=== PATIENT | female | born 1995 | race Caucasian/White ===

== ENCOUNTER 2021-02-17 07:36 | Inpatient (IN) ==
[2021-02-17] MEDS ORDERED: BUTORPHANOL TARTRATE 1 MG/ML VIAL IV PRN (08:39)
[2021-02-17] MEDS ORDERED: DINOPROSTONE 10 MG INSERT PV ONE (08:39)
[2021-02-17] MEDS ORDERED: CALCIUM CARBONATE 500 MG CHEWABLE TAB PO PRN (08:41)
[2021-02-17] MEDS ORDERED: ONDANSETRON INJ 2 MG/ML 2 ML VIAL IV PRN (08:42)
--- NOTE | 2021-02-17 08:48 | History & Physical Report ---
Date of Service February 17, 2021 Assessment & Plan (1) Post-term , 40-42 weeks of gestation: 25-year-old G1, P0 at 40 weeks and 4 days of gestation, being admitted for scheduled induction of labor for postdates. Vital signs stable afebrile, heart rate reassuring, GBS negative, Cervix unfavorable, Plan to admit, start IV site, labs and cervical ripening with Cervidil. Understands the findings and what to expect during induction. All questions were answered. Admission and Anticipated Discharge Date Admission Date: February 17, 2021 History of Present Illness Primary Care Provider: NO PCP Patient is a 25-year-old G1, P0 at 40 weeks and 4 days of gestation who was scheduled for induction of labor for postdates. Patient has no complaints. She denies contractions, leakage of fluid, vaginal bleeding and she reports good movements. She denies headache, change in her vision, nausea, vomiting, fever or chills nor Covid symptoms. Her has been uncomplicated except 1 hypothyroidism during , on levothyroxine 2 anemia, on iron 3 transferring care at 18 weeks, normal labs. 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 Review of Systems All systems reviewed & are unremarkable except as noted in HPI & below Physical Exam Constitutional: WD/WN, vitals as above well developed and well nourished Gastrointestinal (Abdomen): normal bowel sounds, soft, nontender, no hepatosplenomegaly (Gravid, Evgeny 7 to 8 pounds) Genitourinary: normal external appearance OB Exam Abdomen: + vertex Manual OB Exam: + cervical dilation 1 cm, + cervical effacement 30% and + station (Ballotable head) high OB Exam Monitor Tracing: + external uterine monitor used and + category I Results & Data ([facility]) Vital Signs (Past 12 Hours) Vital Signs Temp Pulse Resp BP 02/17/21 07:55 36.5 C 56 L 20 119/69
[2021-02-17 09:02] LABS: Hemoglobin 11.7 g/dL (12.0-16.0); Mean Corpuscular Hgb Conc 34.4 g/dL (32-36); Mean Corpuscular Volume 98.8 fL (80-100); Mean Platelet Volume 13.5 fL (7.4-10.4); Platelet Count 178 K/uL (130-400); RDW Standard Deviation 46.9 fL (36.4-46.3); Red Blood Count 3.44 M/uL (4.2-5.4); White Blood Count 9.14 K/uL (4.8-10.8)
--- NOTE | 2021-02-17 15:49 | Obstetrical Progress Note ---
Date of Service February 17, 2021 Assessment & Plan Admission and Anticipated Discharge Date Admission Date: February 17, 2021 Subjective Patient is reevaluated. She feels well no complaints. she feels tightening of uterus with no pain. She has been drinking with no nausea nor vomiting. She denies leakage of fluid or vaginal bleeding and she reports good movements. heart rate category 1, toco contractions every 3 to 5 minutes. Continue to monitor closely. Results & Data ([facility]) Vital Signs (Past 12 Hours) Vital Signs Temp Pulse Resp BP 02/17/21 14:18 37.0 C 56 L 20 122/57 L 02/17/21 13:03 36.6 C 67 18 115/81 02/17/21 12:03 53 L 126/66 02/17/21 09:14 55 L 118/73 02/17/21 07:55 36.5 C 56 L 20 119/69
--- NOTE | 2021-02-17 23:02 | Obstetrical Progress Note ---
Date of Service February 17, 2021 Assessment & Plan Admission and Anticipated Discharge Date Admission Date: February 17, 2021 Subjective Patient is reevaluated. She is sitting on the birthing ball. She has been feeling more painful contractions for the last hour. Pain is 4-5 out of 10 and milder with some other contractions. No leakage of fluid or vaginal bleeding and she reports good movements. Cervidil was removed at 9:15 PM and her cervix was unchanged, 1 to 2 cm, 50% -3 and posterior. heart rate had been reassuring, category 1 and contractions are every 2 to 5 minutes. Discussed with the patient about pain management during labor, IV pain medications versus epidural versus ambulation or birthing ball. She wants to hold for now, ambulate and will probably get IV Stadol. Continue to monitor and start oral Cytotec when contractions will space out. Results & Data ([facility]) Vital Signs (Past 12 Hours) Vital Signs Temp Pulse Resp BP 02/17/21 19:48 47 L 123/73 02/17/21 19:40 36.7 C 18 02/17/21 16:43 69 130/89 02/17/21 15:46 18 02/17/21 15:19 16 02/17/21 14:18 37.0 C 56 L 20 122/57 L 02/17/21 13:03 36.6 C 67 18 115/81 02/17/21 12:03 53 L 126/66
[2021-02-17] MEDS: miSOPROStoL 50 MCG TAB PO SCH (23:23)
[2021-02-18] MEDS: miSOPROStoL 50 MCG TAB PO SCH (03:35)
[2021-02-18] MEDS: LACTATED RINGER'S 1,000 ML IV PRN ×3 (05:58→12:48)
[2021-02-18] MEDS ORDERED: SODIUM CHLORIDE 0.9% INJ 10 ML VIAL ONE (06:15)
[2021-02-18] MEDS ORDERED: ePHEDrine sulfate 50 MG/ML AMP ONE (06:15)
[2021-02-18] MEDS ORDERED: BUPIVACAINE 0.25% 30 ML VIAL ONE (06:15)
[2021-02-18] MEDS ORDERED: fentaNYL citrate 100 MCG/2 ML VIAL ONE (06:15)
[2021-02-18] MEDS ORDERED: fentaNYL 2MCG/ML ROPIVACAINE 1.25MG/ML 100 ML BAG EPI ONE (06:16)
--- NOTE | 2021-02-18 06:20 | Obstetrical Progress Note ---
Date of Service February 18, 2021 Assessment & Plan Admission and Anticipated Discharge Date Admission Date: February 17, 2021 Subjective Patient is reevaluated. Received 2 doses of p.o. Cytotec and one time IV Stadol for pain at 2:30 AM. [facility]'ed at 0508, clear. Started to get more painful and desires epidural for pain. Her cervix was just checked by her nurse and it was 3 cm dilated, 70% effaced, - 2 with light meconium. heart rate category 1 Continue to monitor closely and epidural for pain. Results & Data ([facility]) Vital Signs (Past 12 Hours) Vital Signs Temp Pulse Resp BP Pulse Ox 02/18/21 06:13 70 99 02/18/21 05:54 51 L 100 02/18/21 05:49 48 L 100 02/18/21 05:44 48 L 98 02/18/21 05:39 44 L 99 02/18/21 05:34 46 L 99 02/18/21 05:29 54 L 100 02/18/21 05:24 50 L 99 02/18/21 05:19 53 L 99 02/18/21 05:14 36.5 C 55 L 18 98 02/18/21 05:06 48 L 97 02/18/21 05:01 46 L 99 02/18/21 04:56 49 L 98 02/18/21 04:51 47 L 98 02/18/21 04:46 45 L 97 02/18/21 04:41 45 L 97 02/18/21 04:36 59 L 97 02/18/21 04:26 57 L 97 02/18/21 04:21 54 L 97 02/18/21 04:16 50 L 97 02/18/21 04:11 53 L 97 02/18/21 04:06 50 L 97 02/18/21 04:01 48 L 97 02/18/21 03:56 47 L 97 02/18/21 03:51 47 L 97 02/18/21 03:46 49 L 97 02/18/21 03:41 51 L 96 02/18/21 03:36 52 L 97 02/18/21 03:31 51 L 97 02/18/21 03:26 46 L 97 02/18/21 03:21 49 L 97 02/18/21 03:16 46 L 97 02/18/21 03:11 48 L 97 02/18/21 03:06 61 97 02/18/21 03:03 47 L 101/56 L 02/18/21 03:02 36.5 C 16 02/18/21 03:01 68 98 02/18/21 02:56 47 L 97 02/18/21 02:51 48 L 97 02/18/21 02:46 48 L 97 02/18/21 02:41 47 L 96 02/17/21 23:03 36.7 C 48 L 16 107/56 L 02/17/21 19:48 47 L 123/73 02/17/21 19:40 36.7 C 18
[2021-02-18] MEDS ORDERED: NALOXONE HCL 1 MG in SODIUM CHLORIDE 0.9% 1000ML 1,000 ML IV PRN (06:35)
[2021-02-18] MEDS ORDERED: NALOXONE HCL 0.4 MG/1 ML VIAL/CARP IV PRN (06:35)
[2021-02-18] MEDS ORDERED: fentaNYL 2MCG/ML ROPIVACAINE 1.25MG/ML 100 ML BAG EPI PRN (06:35)
[2021-02-18] MEDS ORDERED: ePHEDrine sulfate 50 MG/ML AMP IV PRN (06:35)
[2021-02-18] MEDS ORDERED: ONDANSETRON INJ 2 MG/ML 2 ML VIAL IV PRN (06:35)
[2021-02-18] MEDS ORDERED: diphenhydrAMINE 50 MG/ML VIAL IV PRN (06:35)
--- NOTE | 2021-02-18 06:35 | Anesthesiology Consultation ---
Date of Service February 18, 2021 Assessment & Plan ASA ASA2 Proposed Anesthesia Anesthesia Type: Labor Epidural Risk / Benefits Reviewed With: PT / POA / Parent / Guardian, Accepts Plan and Informed Consent Obtained History Height/Weight Height: 5 ft 6 in Weight: 73.1 kg Allergies Allergy/AdvReac Type Severity Reaction Status Date / Time No Known Allergies Allergy Unverified 02/17/21 08:53 Medications Home Medications Medication Instructions Recorded Confirmed Last Taken ferrous sulfate 27 mg PO DAILY 12/18/20 02/17/21 02/16/21 20:00 levothyroxine 75 mcg PO DAILY 12/18/20 02/17/21 02/17/21 07:00 75 mcg vit no.[id number] 1 tab PO DAILY 12/18/20 02/17/21 02/17/21 07:00 [ Vitamin] progesterone micronized 200 mg PO HS 12/18/20 02/17/21 12/17/20 21:00 Active Medications Generic Name Dose Route Start Last Admin Trade Name Freq PRN Reason Stop Dose Admin Butorphanol Tartrate 1 mg 02/17/21 08:39 02/18/21 02:34 Butorphanol Tartrate 1 Mg/Ml Vial IV 03/19/21 08:38 1 mg Q3HWA PRN Administration Pain Lactated Ringer's 1,000 mls @ 150 mls/hr 02/17/21 08:39 02/18/21 05:58 Lr IV 02/19/21 08:38 999 mls/hr .Q6H40M PRN Administration L&D Protocol Protocol Misoprostol 50 mcg 02/18/21 00:00 02/18/21 03:35 Misoprostol 50 Mcg Tab PO 03/20/21 00:00 50 mcg Q4 EVAN Administration Exercise / Class Metabolic Activity II 4-5 Yardwork/Stairs/Walk up hill Past Surgical History Surgical History (Updated 02/17/21 @ 08:56 by María Monsalve RN) [place] teeth extracted Past Anesthesia History No Hx of Anesthesia Complications and No Family Hx of Anesthesia Complications History of PONV No Hx of PONV and No Hx of Motion Sickness Social History Smoking Status: Never smoker Do You Dip or Chew Tobacco: No Hx Alcohol Use: No Hx Substance Use: No substance use type: does not use Review of Systems denies fever/cough/ colds/ chest pain/ SOB/ DIEGO denies DIEGO Physical Exam Vital Signs Last Vital Signs Temp 36.5 C 02/18/21 05:14 Pulse 64 02/18/21 06:54 Resp 16 02/18/21 06:50 BP 126/62 02/18/21 06:54 Pulse Ox 100 02/18/21 06:53 ENMT Mouth: no TMJ abnormality and no dentition abnormality Thyromental Distance: > or= 3.5 Finger Breadths Mallampati Class: II Neck neck extension not limited Respiratory normal respiratory effort; no respiratory distress Auscultation: lungs clear to auscultation bilaterally Cardiovascular Rate/Rhythm: regular rate and regular rhythm Neurologic moves all extremities Psychiatric Orientation: alert and oriented x 3 Testing Laboratory Results 02/17/21 08:43
[2021-02-18] MEDS ORDERED: NURSING L&D Epidural Breakthrough Pain Update ONE (12:47)
[2021-02-18] MEDS: OXYTOCIN 30 UNITS/500 ML BAG IV PRN ×2 (14:09→15:16)
--- NOTE | 2021-02-18 14:31 | Delivery Summary ---
Vaginal Delivery Summary Date of Service February 18, 2021 Supervising Physician Co-Signing Physician Notes Delivery Note live female JOSÉ MANUEL over intact perineum with delayed cord clamping. Apgars 8/9 weight pending. Cord blood obtained followed by spontaneous delivery of intact placenta. Small vaginal abrasion at introitus repaired with 3/0 Suture. EBL 150 ml. Final sponge, needle and instrument count are correct. Mom and baby stable.
[2021-02-18] MEDS ORDERED: HYDROCORTISONE ACETATE 25 MG SUPP PR PRN (14:44)
[2021-02-18] MEDS ORDERED: BENZOCAINE 20% AER SPR 82.5 GM CAN EXT PRN (14:44)
[2021-02-18] MEDS ORDERED: DIPHTHERIA/TETANUS/PERTUSSIS 0.5 ML SYR/VIAL IM ONE (14:44)
[2021-02-18] MEDS ORDERED: SUPERCREAM 0.870% 15 GM JAR EXT PRN (14:44)
[2021-02-18] MEDS ORDERED: bisacodyL 10 MG SUPP PR PRN (14:44)
[2021-02-18] MEDS ORDERED: ACETAMINOPHEN 325 MG TAB PO PRN (14:44)
[2021-02-18] MEDS ORDERED: OXYTOCIN 30 UNITS/500 ML BAG IV PRN (14:44)
--- NOTE | 2021-02-18 16:52 | Anesthesia Procedure Note ---
Date of Service February 18, 2021 Anesthesia Post Epidural Note Vital Signs Vital Signs: Temp Pulse Resp BP Pulse Ox 36.6 C 53 L 20 120/67 99 02/18/21 13:17 02/18/21 16:37 02/18/21 16:18 02/18/21 16:37 02/18/21 14:03 Pain Intensity Abdomen: Pain Intensity: 0 Notes Mental Status: alert / awake / arousable and participated in evaluation Nausea / Vomiting: adequately controlled Pain: adequately controlled Airway Patency, RR, SpO2: stable & adequate BP & HR: stable & adequate Hydration State: stable & adequate Neuraxial Anesthesia: was administered and sensory block is resolving Anesthetic Complications: no major complications apparent and Pt Satisfied with anesthetic care Epidural: Removed without complications and With tip intact
[2021-02-18] MEDS ORDERED: Nursing to Pharmacy Communication SCH (17:30)
[2021-02-18] MEDS: IBUPROFEN 600 MG TAB PO PRN ×2 (19:47→23:49)
[2021-02-18] MEDS: DOCUSATE SODIUM 100 MG CAP PO SCH (20:43)
[2021-02-18] MEDS ORDERED: PROGESTERONE MICRONIZED 200 MG PO SCH (21:00)
[2021-02-19] MEDS: IBUPROFEN 600 MG TAB PO PRN ×5 (04:48→20:51)
[2021-02-19] MEDS: LEVOTHYROXINE SODIUM 75 MCG TABLET PO SCH (06:30)
[2021-02-19 06:37] LABS: Hemoglobin 8.7 g/dL (12.0-16.0); Mean Corpuscular Hemoglobin 32.8 pg (25-34); Mean Corpuscular Hgb Conc 33.5 g/dL (32-36); Mean Corpuscular Volume 98.1 fL (80-100); Mean Platelet Volume 12.8 fL (7.4-10.4); Platelet Count 138 K/uL (130-400); RDW Coefficient of Variation 13.3 % (11.5-14.5); RDW Standard Deviation 47.6 fL (36.4-46.3); Red Blood Count 2.65 M/uL (4.2-5.4); White Blood Count 10.87 K/uL (4.8-10.8)
[2021-02-19] MEDS ORDERED: FERROUS SULFATE 325 MG TAB PO SCH ×3 (07:15→09:00)
--- NOTE | 2021-02-19 08:03 | Obstetrical Progress Note ---
Date of Service February 19, 2021 Assessment & Plan Admission and Anticipated Discharge Date Admission Date: February 17, 2021 Subjective Patient is seen and examined. She feels well, no complaints. Ambulating without dizziness Voiding without difficulty Tolerating regular diet with out N&V Bleeding is minimal No fever/ chills/ CP/ SOB/ N&V/ Leg pain Breast feeding without problems Vital Signs Temp Pulse Resp BP Pulse Ox 02/19/21 04:45 36.7 C 61 16 131/80 99 02/18/21 23:50 36.5 C 60 17 121/74 98 Lab Results 02/17/21 02/17/21 02/17/21 Range/Units 08:43 08:44 08:44 WBC 9.14 (4.8-10.8) K/uL RBC 3.44 L (4.2-5.4) M/uL Hgb 11.7 L (12.0-16.0) g/dL Hct 34.0 L (37-47) % MCV 98.8 (80-100) fL MCH 34.0 (25-34) pg MCHC 34.4 (32-36) g/dL RDW Std Deviation 46.9 H (36.4-46.3) fL RDW Coeff of Melita 13.0 (11.5-14.5) % Plt Count 178 (130-400) K/uL MPV 13.5 H (7.4-10.4) fL COVID-19 Eval Order Covid19 IDNow atMMNC SARS-CoV-2, RNA, NAAT NEGATIVE (NEGATIVE) 02/19/21 Range/Units 06:13 WBC 10.87 H (4.8-10.8) K/uL RBC 2.65 L (4.2-5.4) M/uL Hgb 8.7 L D (12.0-16.0) g/dL Hct 26.0 L (37-47) % MCV 98.1 (80-100) fL MCH 32.8 (25-34) pg MCHC 33.5 (32-36) g/dL RDW Std Deviation 47.6 H (36.4-46.3) fL RDW Coeff of Melita 13.3 (11.5-14.5) % Plt Count 138 (130-400) K/uL MPV 12.8 H (7.4-10.4) fL COVID-19 Eval Order SARS-CoV-2, RNA, NAAT (NEGATIVE) PE: General: Alert, orientedx3, NAD Abd: soft, NT, fundus firm, below Umbilicus Perineum intact, Lochia rubra minimal Ext; NT, no edema AP: 25 yo s/p , ppd# 1 VSS Afebrile doing well Anemic asymptomatic: iron bid Continue routine care All questions were answered D/C home tomorrow Results & Data ([facility]) Vital Signs (Past 12 Hours) Vital Signs Temp Pulse Resp BP Pulse Ox 02/19/21 04:45 36.7 C 61 16 131/80 99 02/18/21 23:50 36.5 C 60 17 121/74 98
[2021-02-19] MEDS: DOCUSATE SODIUM 100 MG CAP PO SCH ×2 (08:07→20:51)
[2021-02-19] MEDS: FERROUS SULFATE 325 MG TAB PO SCH ×2 (08:07→20:51)
[2021-02-19] MEDS: PRENATAL VITAMIN 1 TAB PO SCH (08:07)
[2021-02-19] MEDS ORDERED: PRENATAL VITAMIN 1 TAB PO SCH (09:00)
[2021-02-19] MEDS ORDERED: bisacodyL 5 MG TABEC PO SCH (20:00)
[2021-02-20] MEDS: IBUPROFEN 600 MG TAB PO PRN (05:07)
[2021-02-20 06:05] LABS: Hematocrit (blood only) 26.4 % (37-47); Hemoglobin 8.8 g/dL (12.0-16.0)
[2021-02-20] MEDS: LEVOTHYROXINE SODIUM 75 MCG TABLET PO SCH (06:18)
[2021-02-20] MEDS: PRENATAL VITAMIN 1 TAB PO SCH (07:41)
[2021-02-20] MEDS: FERROUS SULFATE 325 MG TAB PO SCH (07:41)
--- NOTE | 2021-02-20 09:10 | Obstetrical Progress Note ---
Date of Service February 20, 2021 Subjective Ambulation: ambulating normally Diet Tolerance:: regular diet Feeding Type:: breast feeding passing gas, +BM yesterday no bleeding or pain Physical Exam Constitutional WD/WN, vitals as above well developed and comfortable no edema neg Dimple's abdomen soft Results & Data ([facility]) Vital Signs (Past 12 Hours) Vital Signs Temp Pulse Resp BP Pulse Ox 02/20/21 07:45 36.4 C L 74 18 129/91 99 02/19/21 22:45 36.4 C L 62 16 118/72 98 Laboratory Results Laboratory Results - last 72 hr 02/19/21 02/20/21 06:13 05:55 WBC 10.87 H RBC 2.65 L Hgb 8.7 L D 8.8 L Hct 26.0 L 26.4 L MCV 98.1 MCH 32.8 MCHC 33.5 RDW Std Deviation 47.6 H RDW Coeff of Melita 13.3 Plt Count 138 MPV 12.8 H
== END 2021-02-20 10:00 | disposition home or self-care (01) | DRG 807 ==
LOC: 4S1 07:36 → 4S2 02-18 18:20

== ENCOUNTER 2023-05-17 17:31 | Inpatient (IN) ==
[2023-05-17] MEDS ORDERED: OXYTOCIN 30 UNITS/500 ML BAG IV PRN ×2 (17:50→18:47)
[2023-05-17] MEDS ORDERED: LIDOCAINE 1% LOCAL 20 ML VIAL INFIL PRN (17:50)
[2023-05-17] MEDS ORDERED: LACTATED RINGER'S 1,000 ML IV PRN (17:50)
[2023-05-17] MEDS ORDERED: LIDOCAINE 2%/EPINEPHRINE 1:200,000 20 ML PF ONE (18:05)
[2023-05-17] MEDS ORDERED: BUPIVACAINE 0.25% PF 30 ML VIAL ONE (18:05)
[2023-05-17] MEDS ORDERED: SODIUM CHLORIDE 0.9% PF INJ 10 ML VIAL ONE (18:05)
[2023-05-17] MEDS ORDERED: ePHEDrine sulfate 50 MG/ML AMP ONE (18:05)
[2023-05-17] MEDS ORDERED: fentaNYL citrate PF 100 MCG/2 ML VIAL ONE (18:05)
[2023-05-17] MEDS ORDERED: fentaNYL 2MCG/ML ROPIVACAINE 1.25MG/ML 100 ML BAG EPI ONE (18:06)
[2023-05-17] MEDS ORDERED: PENICILLIN G POTASSIUM 6 MU in DEXTROSE 5% 250 ML IV ONE (18:15)
[2023-05-17 18:36] LABS: Hematocrit (blood only) 35.9 % (37.0-47.0); Hemoglobin 12.7 g/dl (12.0-16.0); Mean Corpuscular Hemoglobin 33.6 pg (25.0-34.0); Mean Corpuscular Hgb Conc 35.4 g/dL (32.0-36.0); Mean Platelet Volume 13.1 fL (9.4-12.4); Platelet Count 261 K/uL (130-400); RDW Coefficient of Variation 12.2 % (11.5-14.5); RDW Standard Deviation 42.3 fL (36.4-46.3); Red Blood Count 3.78 M/uL (4.20-5.40); White Blood Count 16.35 K/ul (4.8-10.8)
--- NOTE | 2023-05-17 18:44 | Delivery Summary ---
Vaginal Delivery Summary Date of Service May 17, 2023 Vaginal Delivery Summary live male JOSÉ MANUEL over intact perineum with nuchal cord and foot cord x1 with delayed cord clamping and Apgars 8/9 weight pending. Cord blood obtained followed by spontaneous delivery of intact placenta. No tears. EBL 100 ml. Final sponge and instrument count are correct. Mom and baby stable.
[2023-05-17] MEDS ORDERED: ACETAMINOPHEN 325 MG TAB PO PRN (18:47)
[2023-05-17] MEDS ORDERED: bisacodyL 10 MG SUPP PR PRN (18:47)
[2023-05-17] MEDS ORDERED: HYDROCORTISONE ACETATE 25 MG SUPP PR PRN (18:47)
[2023-05-17] MEDS ORDERED: DIPHTHERIA/TETANUS/PERTUSSIS Vaccine (Tdap, Age 7+yrs) 0.5mL SYR/VL IM ONE (18:47)
[2023-05-17] MEDS ORDERED: BENZOCAINE 20% SPRY 85 APPLN/85 GM CAN EXT PRN (18:47)
[2023-05-17] MEDS ORDERED: PENICILLIN G POTASSIUM 3 MU in DEXTROSE 5% 100 ML IV PRN (20:50)
[2023-05-17] MEDS: DOCUSATE SODIUM 100 MG CAP PO SCH (21:17)
[2023-05-18] MEDS: LEVOTHYROXINE SODIUM 100 MCG TABLET PO SCH (05:54)
[2023-05-18 07:18] LABS: Hematocrit (blood only) 34.9 % (37.0-47.0); Hemoglobin 11.9 g/dl (12.0-16.0); Mean Corpuscular Hemoglobin 33.2 pg (25.0-34.0); Mean Corpuscular Hgb Conc 34.1 g/dL (32.0-36.0); Mean Corpuscular Volume 97.5 fL (80.0-100.0); Red Blood Count 3.58 M/uL (4.20-5.40); White Blood Count 11.11 K/ul (4.8-10.8)
[2023-05-18 07:19] LABS: Mean Platelet Volume 12.5 fL (9.4-12.4); Platelet Count 182 K/uL (130-400); RDW Coefficient of Variation 12.4 % (11.5-14.5); RDW Standard Deviation 44.3 fL (36.4-46.3)
[2023-05-18] MEDS: FERROUS SULFATE 325 MG TAB PO SCH (08:33)
[2023-05-18] MEDS: DOCUSATE SODIUM 100 MG CAP PO SCH ×2 (08:33→20:25)
[2023-05-18] MEDS: PRENATAL VITAMIN 1 TAB PO SCH (08:33)
[2023-05-18] MEDS: FLUoxetine HCL 10 MG CAP PO SCH (08:34)
[2023-05-18] MEDS: IBUPROFEN 600 MG TAB PO PRN ×3 (09:35→17:24)
--- NOTE | 2023-05-18 09:35 | Obstetrical Progress Note ---
Date of Service May 18, 2023 Subjective Ambulation: ambulating normally Voiding: no voiding problems Passing Gas:: Yes Diet Tolerance:: regular diet Lochia:: Small Feeding Type:: breast feeding Current Pain Level(1-10): 0 doing well Physical Exam Constitutional WD/WN, vitals as above Musculoskeletal Extremities: extremities normal to inspection Skin no rashes, warm and dry Neurologic patellar DTR's 2+ bilat, sensation intact Psychiatric A+Ox3, euthymic affect Results & Data Vital Signs (Past 12 Hours) Vital Signs Temp Pulse Resp BP Pulse Ox O2 Del Method 05/18/23 04:20 36.6 C 52 L 18 108/59 L 97 Room Air 05/18/23 00:21 36.6 C 49 L 18 107/66 96 Room Air Laboratory Results 05/17/23 05/18/23 18:18 06:43 WBC 16.35 H 11.11 H RBC 3.78 L 3.58 L Hgb 12.7 11.9 L Hct 35.9 L 34.9 L MCV 95.0 97.5 MCH 33.6 33.2 MCHC 35.4 34.1 RDW Std Deviation 42.3 44.3 RDW Coeff of Melita 12.2 12.4 Plt Count 261 182 MPV 13.1 H 12.5 H
[2023-05-18] MEDS ORDERED: bisacodyL 5 MG TABEC PO SCH (20:00)
[2023-05-19 06:34] LABS: Hematocrit (blood only) 32.3 % (37.0-47.0)
[2023-05-19] MEDS: FLUoxetine HCL 10 MG CAP PO SCH (08:03)
[2023-05-19] MEDS: FERROUS SULFATE 325 MG TAB PO SCH (08:03)
[2023-05-19] MEDS: LEVOTHYROXINE SODIUM 100 MCG TABLET PO SCH (08:03)
[2023-05-19] MEDS: DOCUSATE SODIUM 100 MG CAP PO SCH (08:03)
[2023-05-19] MEDS: IBUPROFEN 600 MG TAB PO PRN (08:03)
[2023-05-19] MEDS: PRENATAL VITAMIN 1 TAB PO SCH (08:03)
--- NOTE | 2023-05-19 09:04 | Labor Progress Brief Note ---
Date of Service May 19, 2023 Assessment & Plan (1) Post-term , 40-42 weeks of gestation: Plan: Pt doing well no complaints anticipate disch Admission and Anticipated Discharge Date Admission Date: May 17, 2023 Results & Data Vital Signs (Past 12 Hours) Vital Signs Temp Pulse Resp BP Pulse Ox O2 Del Method 05/19/23 00:00 36.5 C 51 L 16 120/73 98 Room Air
--- NOTE | 2023-05-21 11:25 | Coding Query ---
CODING QUERY To promote full compliance with coding requirements relating to patient care, provider participation is requested in all cases of medical records coder uncertainty. Please assist us with the question(s) below: Coding Question(s): Please confirm below the patient's weeks of gestation at the time of admission. 39 weeks Physician's Response(s): Thank you Yari Ojeda Brian Principal Diagnosis: "that condition established after study, to be chiefly responsible for occasioning the admission of the patient to the hospital for care." Co-Existing Principal Diagnosis: "when two or more diagnoses equally meet the criteria for principal diagnosis as determined by the circumstances of admission, diagnostic work up, and/or therapy provided, and the Alphabetic Index, Tabular List, or another coding guideline does not provide sequencing direction, any one of the diagnoses may be sequenced first." "When the physician has documented what appears to be a current diagnosis in the body of the record, but has not included the diagnosis in the final diagnostic statement, the physician should be asked whether the diagnosis should be added." (Source [facility]oding [facility] 2 QTR90. p3-4) ANNETTE
== END 2023-05-19 11:10 | disposition home or self-care (01) | DRG 807 ==
LOC: OPB 17:31 → 4S1 17:32 → 4E2 20:51

== ENCOUNTER 2025-02-04 07:21 | Inpatient (IN) ==
--- OUTSIDE RECORDS SUMMARY | 2025-02-04 07:30 | External Medical Summary | Summary of Care ---
Author Name Unknown Organization [facility] Address [address] [place] [address] Phone [phone] Care Team Providers Care Nursing Informatics Clinical Analyst Name Role Phone Shelbie May MD Primary Care Provider Reason for Visit * Reason Comments Return Visit Encounter Details Date Type Department Care Team (Late st Contact Info) Description 12/27/2024 2:30 PM EDT Office Visit Gynecology/Obstetric s [facility] Deshpande [address] [place] [address] [facility] CRNP [address] [facility] [place] [address] Supervision of other normal , antepartum*; Hypothyroidism affecting , antepartum; Antepartum anemia complicating Allergies No known active allergiesdocumented as of this encounter (statuses as of 12/27/2024) Medications 19 29-1 MG Oral Tablet Chewable Take by mouth . Active Clindamycin Phosphate 1 % External Lotion Apply to face daily for acne 60 mL 3 4 Active Vitron-C 65-125 MG Oral Tablet (Iron-Vitamin C 65-125 mg per tab) Take 1 Tablet by mouth in the morning. Active Levothyroxine Sodium 75 MCG Oral Tablet (Levoxyl)Indicatio ns:Acquired hypothyroidism Take 1 Tablet by mouth daily first thing in the morning. (at least 30 min prior to breakfast or other meds) 90 Tablet 1 5 Active documented as of this encounter (statuses as of 12/27/2024) Active Problems Problem Noted Date Diagnosed Date Antepartum anemia complicating 025 Supervision of other normal , antepartu m 10/13/2022 Anxiety 09/12/2021 Acquired hypothyroidism 06/19/2021 Family history of malignant melanoma 06/19/2021 Hypothyroidism affecting , antepartum 1 11/14/2019 Overview (12/27/2024): TSH Results: Lab Results Component Value Date/Time TSH - [facility] 1.79 11/21/2024 02:34 PM TSH - [facility] 2.49 08/30/2024 02:38 PM TSH - [facility] 1.28 07/04/2024 02:04 PM Assessment & Plan (10/28/2020 10:27 AM EST): Reminded of need for TSH. Estimated Date of Delivery Comme nts Yes 01/27/2025 Based on last me nstrual period of 04/22/2024 (Exact Date) documented as of this encounter (statuses as of 12/27/2024) Resolved Problems Problem Noted Date Diagnosed Date Resolved Date Abnormal glucose tolerance i n mother complicating 11/21/2024 12/27/2024 Overview (12/04/2024): Passed 3 hr GTT GBS (group B streptococcus) UTI complicating 04/29/2023 05/17/2023 Antepartum anemia complicating 02/26/2023 05/17/2023 First trimester 06/10/2022 Antepartum anemia complicating 11/28/2020 03/06/2021 Overview (12/23/2020): 11/25/20 Fe supplement initiated. Results for orders placed or performed in visit on 12/19/20 CBC Result Value Ref Range HEMOGLOBIN-OUTSIDE LAB 11.2 (L) 12.0 - 16.0 G/DL Supervision of normal first , antepartum 09/13/2020 03/06/2021 Overview (09/13/2020): Transfer of care at 18w1d PNL reviewed from records: CBC wnl, A+/RI, STD testing negative including Hepatitis B, Hepatitis C, HIV, syphilis, GC/CT Pap test 07/12/20 NILM TSH 2.14 documented as of this encounter (statuses as of 12/27/2024) Immunizations Name Administration Dates Next Due COVID-19 mRNA, LNP-s, No Pre serve, 2-Dose Series (Pfizer) 09/05/2021,12/30/2020,12/09/2020 COVID-19, MRNA-LNP, 24-25, P R, 30MCG/0.3ML, IM, 12YRS AND ABOVE (Cenify-Comirnaty) 07/18/2024 Seasonal Influenza Virus Vac cine, Unspecified Formulation 08/09/2021 Seasonal Influenza, PF, 6 M & above, IM , (FluLaval or Fluzone) 07/06/2023,07/31/2022 Seasonal Influenza, Quadriva lent, No Preserve, IM 06/24/2020 Seasonal Influenza, Trivalen t, (IIV3), PF, (Fluzone) 07/18/2024 TDAP (age 10 and older)(Boostrix) 02/25/2023,09/2020 TDAP, Age 7 and older, IM (Adacel) 10/31/2024 documented as of this encounter Social History Tobacco Use Types Packs/Day Years Used Date Smoking Tobacco: Never Smokeless Tobacco: Never Alcohol Use Standard Drinks/Week Comments Not Currently 0 (1 standard drink = 0.6 oz pur e alcohol) PHQ-2 Answer Date Recorded PHQ Adult Total Score 7 08/06/2021 Hunger Vital Sign Answer Date Recorded Within the past 12 months, y ou worried that your food would run out before you got the money to buy more. Never true 09/15/20 24 Within the past 12 months, t he food you bought just didn't last and you didn't have money to get more. Never true 09/15/2024 [place] Depression Scale Answer Date Recorded [place] Depression Scale Total 5 12/07/2024 The thought of harming myself has occurred to me . Never 12/07/2024 Childcare Answer Date Recorded Do you feel overwhelmed with taking care of a child, family member or friend? No 09/15/2024 Does your family need help f inding childcare? (Household - for ages 0-17 years) Not on file 09/15/2024 Clothing Answer Date Recorded Have you been unable to get clothing when it was really needed? No 09/15/2024 Is your family able to get c lothes or diapers when needed? (Household - for ages 0-17 years) Not on file 09/15/2024 Personal Safety Answer Date Recorded Do you feel unsafe or have concerns for your saf ety? No 09/15/2024 Do you have concerns for you r family's safety? (Household - for ages 0-17 years) Not on file 09/15/2024 Utilities Answer Date Recorded Do you have trouble paying y our heating, water, or electric bill? No 09/15/2024 Is your family able to pay t he heat, water, or electric bill? (Household - for ages 0-17 years) Not on file 09/15/2024 Does your family have access to good internet? (Household - for ages 0-17 years) Not on file 09/15/2024 Employment Status Answer Date Recorded Are you unemployed or without regular income? No 09/15/2024 Does the household have a re lar source of income? (Household - for ages 0-17 years) Not on file 09/15/2024 Social Connections Answer Date Recorded How often do you feel lonely or isolated from th ose around you? Never 09/15/2024 Financial Resource Strain Answer Date R ecorded Do you have any trouble payi ng for your medications, or do you think you might in the future? No 09/15/2024 Does your family have troubl e paying for medicine? (Household - for ages 0-17 years) Not on file 09/15/2024 Transportation Needs Answer Date Record ed Do you have trouble getting a ride to medical visits or work? (Adult - for ages 18 years and over) Not on file 09/15/2024 Does your family have a hard time getting a ride to doctors visits? (Household - for ages 0-17 years) Not on file 09/15/2024 Has lack of transportation k ept you from medical appointments, meetings, work, or from getting things needed for daily living? Check all that apply. No 09/15/2024 Do you (or your family) have trouble finding or paying for a ride (transportation)? (Household - for ages 0-17 years) Not on file 09/15/2024 Housing Stability Answer Date Recorded Do you currently live in a s helter or have no steady place to sleep at night? No 09/15/2024 Do you think you are at risk of becoming homeless? (Adult - for ages 18 years and over) Not on file 09/15/2024 Does your family worry about paying for your home or becoming homeless? (Household - for ages 0-17 years) Not on file 1 11/16/2023 Are you homeless or worried that you might be in the future? No 09/15/2024 Are you (or your family) tommy eless or worried that you might be in the future? (Household - for ages 0-17 years) Not on file Food Insecurity Answer Date Recorded Do you need food for this week? No 09/15/2024 Are you able to get enough f ood for your family? (Household - for ages 0-17 years) Not on file 09/15/2024 Does your family need food t his week? (Household - for ages 0-17 years) Not on file 09/15/2024 Do you always have enough fo od for your family? (Household - for ages 0-17 years) Not on file 09/15/2024 Food Insecurity Answer Date Recorded Within the past 12 months, y ou worried that your food would run out before you got the money to buy more. Never true 09/15/20 24 Within the past 12 months, t he food you bought just didn't last and you didn't have money to get more. Never true 09/15/2024 Do you need food for this week? No 09/15/2024 Estimated Date of Delivery Comme nts Yes 01/27/2025 Based on last me nstrual period of 04/22/2024 (Exact Date) Sex and Gender Information Value Date Recorded Sex Assigned at Female 05/22/2022 10:22 AM EDT Legal Sex Female 12:53 PM EST Gender Identity Female 05/22/2022 10:22 AM EDT Sexual Orientation Straight 05/22/2022 10 :22 AM EDT documented as of this encounter Last Filed Vital Signs Vital Sign Reading Time Taken Comments Blood Pressure 102/66 12/27/2024 2:19 PM EDT Pulse - - Temperature - - Respiratory Rate - - Oxygen Saturation - - Inhaled Oxygen Concentration - - Weight 70.8 kg (156 lb) 12/27/2024 2:19 PM EDT Height - - Body Mass Index 25.18 12/07/2024 3:17 PM EDT documented in this encounter Progress Notes * Tri Griffiths CRNP - 12/27/2024 2:34 PM EDT 35w4d Doing well, baby is active. No leaking, bleeding, or regular ctx. Will use NFP , discussed limitations with and irregular cycles. Recheck CBC today. Baby is cephalic on POCUS. 1 week return, GBS to be collected then. SULY [place] documented in this encounter Plan of Treatment Upcoming Encounters Date Type Department Care Team (Late st Contact Info) Description 01/03/2025 9:15 AM EDT Office Visit Gynecology/Obstetrics [facility] [address] [address] Ronda Powell, ELSA, CNM [address] [address] 05/09/2025 8:00 AM EDT Office Visit Family Practice [facility] [address] [place] [address] Shelbie May MD [address] [phone] Pending Results Name Type Priority Associated Diagnoses Date /Time CBC WITH WBC DIFFERENTIAL AND ANEMIA REFLEX WORKUP Lab Routine Antepartum anemia complicating 12/27/2024 2:36 PM EDT Scheduled Orders Name Type Priority Associated Diagnoses Orde r Schedule CBC WITH WBC DIFFERENTIAL AND ANEMIA REFLEX WORKUP Lab Routine Antepartum anemia complicating Expected: 12/27/2024 (Approximate), Expires: 12/27/2025 Health Maintenance Due Date Last Done Comments Depression Screening 2007 Hepatitis B Vaccine (1 of 3 - 19+ 3-dose series) 2014 Pap Smear 10/13/2025 10/13/2022, 12/16/2017 TSH 11/21/2025 11/21/2024, 12/12/2023, 07/04/2024, Additional history exists DTap/Tdap Vaccines (4 - Td or Tdap) 10/31/2034 10/31/2024, 02/25/2023, 11/25/2020 Lipid Panel Completed 01/05/2018 COVID-19 Vaccine Discontinued 07/18/2024, 06/2021, 12/30/2020, Additional history exists Influenza Vaccine (FLU shot) Completed 07/18/2024, 07/06/2023, 07/06/2023, Additional history exists HPV (Gardasil) Vaccine Aged Out No lo nger eligible based on patient's age to complete this topic MENINGOCOCCAL (MENACTRA/MENVEO) Aged Out No longer eligible based on patient's age to complete this topic Meningitis B Vaccine (Bexsero/Trumemba) Aged Out No longer eligible based on patient's age to complete this topic Pneumococcal Vaccine: Pediatrics (0 to 5 Years) and At-Risk Patients (6 to 18 Years and 19+ Years) Aged Out No longer eligib le based on patient's age to complete this topic documented as of this encounter Goals Goal Patient Goal Type Associated Problems Recent Progress Patient-Stated? Author Reminders Care Plan OB Reminders No Yee Provider documented as of this encounter Medical Devices Not on filedocumented as of this encounter Visit Diagnoses Diagnosis Supervision of normal first , antepartum- Primary Hypothyroidism affecting , antepartum Supervision of other normal , antepartum- Primary Hypothyroidism affecting , antepartum Antepartum anemia complicating Anemia, antepartum documented in this encounter Additional Health Concerns Active Problems Noted Date Diagnosed Date OB Reminders 07/04/2024 documented as of this encounter Care Teams Nursing Informatics Clinical Analyst Relationship Specialty Start Date End Date Shelbie May MD [address] [place] [phone] PCP - General Internal Medicine 08/31/22 documented as of this encounter
--- OUTSIDE RECORDS SUMMARY | 2025-02-04 07:30 | External Medical Summary ---
Author Name Unknown Address Unknown Organization [id number]:LABORATORY [facility] [place] - [address] [facility] [address] Laboratory Report Ordering Provider Test Date Status REYNALDO MONACO 12/27/2024 14:36:25 Final Observation Date Value Abnormality Reference (Units ) Status Iron 12/27/2024 14:36:25 95 33-151 (ug/dL) Final Iron-binding capacity 12/27/2024 14:36:25 502 Above high normal 250-425 (ug/dL) Final Transferrin Sat % 12/27/2024 14:36:25 19 15-55 (%) Final Performing Location [facility] [address] [facility] [address]
--- OUTSIDE RECORDS SUMMARY | 2025-02-04 07:30 | External Medical Summary | Summary of Care ---
Author Name Unknown Organization [facility] Address [address] [place] [address] Phone [phone] Care Team Providers Care Data Technical Lead Name Role Phone Shelbie May MD Primary Care Provider Reason for Visit * Reason Comments Return Visit Encounter Details Date Type Department Care Team (Latest Contact Info) Description 01/29/2025 4:15 PM EDT Office Visit Gynecology/Obstetri [facility]hpande [address] [place] [address] Barney Goodman MD [address] [facility] [place] [address] Hypothyroidism affecting , antepartum*; Supervision of other normal , antepartum; Antepartum anemia complicating ; Positive GBS test Allergies No known active allergiesdocumented as of this encounter (statuses as of 01/30/2025) Medications 19 29-1 MG Oral Tablet Chewable [...] as of this encounter (statuses as of 01/30/2025) Active Problems Problem Noted Date Diagnosed Date Positive GBS test 01/05/2025 Overview (01/05/2025): Results for orders placed or performed in visit on 01/03/25 GROUP B STREP CULTURE/PCR Specimen: Vaginal Rectal; Swab Result Value Ref Range Group B Strep PCR Result Positive (A) Negative GBS GBSCt 14.2 GBS SPCCt 0.0 Antepartum anemia complicating 025 Supervision of other [...] as of this encounter (statuses as of 01/30/2025) Resolved Problems Problem Noted Date Diagnosed Date [...] as of this encounter (statuses as of 01/30/2025) Immunizations Name Administration Dates Next Due COVID-19 mRNA, LNP-s, No Pre serve, 2-Dose Series (DiBcom) 09/05/2021,12/30/2020,12/09/2020 COVID-19, MRNA-LNP, 24-25, P R, 30MCG/0.3ML, IM, 12YRS AND ABOVE (Pfizer-Comirnaty) 07/18/2024 Seasonal Influenza Virus Vac cine, Unspecified [...] money to get more. Never true 09/15/2024 [place] Depression Scale Answer Date Recorded [place] Depression Scale Total 5 12/07/2024 The thought [...] 09/15/2024 Does the household have a re gular source of income? (Household - for ages [...] Sign Reading Time Taken Comments Blood Pressure 112/64 01/29/2025 4:19 PM EDT Pulse - - Temperature - - Respiratory Rate - - Oxygen Saturation - - Inhaled Oxygen Concentration - - Weight 73 kg (161 lb) 01/29/2025 4:19 PM EDT Height - - Body Mass Index 25.99 01/03/2025 1:36 PM EDT documented in this encounter Progress Notes * Barney Goodman MD - 01/29/2025 4:42 PM EDT Pt doing well No complaints. +ve FM, Neg ROM Declined cervical exam Екатерина for induction 02/09- Not agreeable to earlier induction NST 2x/week after 41 weeks -Екатерина * Teodora Parekh LPN - 01/29/2025 4:17 PM EDT 40w2d Denies vaginal bleeding/rom + movement Some contractions but nothing regular documented in this encounter Plan of Treatment Upcoming Encounters Date Type Department Care Team (Late st Contact Info) Description 02/08/2025 2:15 PM EDT Office Visit Gynecology/Obstetrics [facility] [address] [place] [address] Baiely Bashir CRNP [address] [place] [address] 05/09/2025 8:00 AM EDT Office Visit Family Practice [facility] [address] [place] [address] Shelbie May MD [address] [place] [address] Health Maintenance Due Date Last Done Comments Depression Screening 2007 Hepatitis B Vaccine (1 of 3 - 19+ 3-dose series) 2014 Pap Smear 10/13/2025 10/13/2022, 12/16/2017 TSH 12/27/2025 12/27/2024, 10/29, 08/30/2024, Additional history exists DTap/Tdap Vaccines (4 - [...] Author Reminders Care Plan OB Reminders No Yee, Provider documented as of this encounter Medical Devices Not on filedocumented as of this encounter Visit Diagnoses Diagnosis Supervision of normal first , antepartum- Primary Hypothyroidism affecting , antepartum Hypothyroidism affecting , antepartum- Primary Supervision of other normal , antepartum Antepartum anemia complicating Anemia, antepartum Positive GBS test documented in this encounter Additional Health Concerns Active Problems Noted Date Diagnosed Date OB Reminders 07/04/2024 documented as of this encounter Care Teams Data Technical Lead Relationship Specialty Start Date End Date Shelbie May MD [address] [address] PCP - General Internal Medicine 08/31/22 documented as of this encounter
--- OUTSIDE RECORDS SUMMARY | 2025-02-04 07:30 | External Medical Summary | Summary of Care ---
Author Name Unknown Organization [facility] Address [address] [place] [address] Phone [phone] Care Team Providers Care Planning Advisor Name Role Phone Shelbie May MD Primary Care Provider Reason for Visit * Reason Comments Outpatient Testing Encounter Details Date Type Department Care Team (Late st Contact Info) Description 12/27/2024 3:10 PM EDT Laboratory Laboratory, [facility] [address] [place] [address] [facility] [address] [place] [address] Antepartum anemia complicating Allergies No known active [...] money to get more. Never true 09/15/2024 [place] Depression Scale Answer Date Recorded [place] Depression Scale Total 5 12/07/2024 The thought [...] AM EDT documented as of this encounter Plan of Treatment Upcoming Encounters Date Type Department Care Team (Late st Contact Info) Description 01/03/2025 9:15 AM EDT Office Visit Gynecology/Obstetrics [facility] [address] [place] [address] Ronda Powell, DNP, CNM [address] [place] [address] 05/09/2025 8:00 AM EDT Office Visit Family Practice [facility] [address] [place] [address] Shelbie May MD [address] [place] [address] Pending Results Name Type Priority Associated Diagnoses Date /Time CBC WITH WBC DIFFERENTIAL AND ANEMIA REFLEX WORKUP Lab Routine Antepartum anemia complicating 12/27/2024 2:36 PM EDT ANEMIA CBC Lab Routine Antepartum anemia complicating 12/27/2024 2:36 PM EDT DIFFERENTIAL, AUTOMATED Lab Routine Antepartum anemia complicating 12/27/2024 2:36 PM EDT ANEMIA REFLEX CHEMISTRY HOLD Lab Routine Antepartum anemia complicating 12/27/2024 2:36 PM EDT Health Maintenance Due Date Last Done Comments Depression Screening 2007 Hepatitis B Vaccine (1 of 3 - 19+ 3-dose series) 2014 Pap Smear 10/13/2025 10/13/2022, 12/16/2017 TSH 11/21/2025 11/21/2024, 12/0 12/2023, 07/04/2024, Additional history exists DTap/Tdap Vaccines (4 [...] Author Reminders Care Plan OB Reminders No Mychart, Provider documented as of this encounter Medical Devices Not on filedocumented as of this encounter Visit Diagnoses Diagnosis Supervision of normal first , antepartum- Primary Hypothyroidism affecting , antepartum Antepartum anemia complicating Anemia, antepartum documented in this encounter Additional Health Concerns Active Problems Noted Date Diagnosed Date OB Reminders 07/04/2024 documented as of this encounter Care Teams Planning Advisor Relationship Specialty Start Date End Date Shelbie May MD [address] [address] PCP - General Internal Medicine 08/31/22 documented as of this encounter
--- OUTSIDE RECORDS SUMMARY | 2025-02-04 07:30 | External Medical Summary ---
Author Name Unknown Address Unknown Organization K01:LABORATORY [facility] [place] - [address] [place] [address] Laboratory Report Ordering Provider Test Date Status REYNALDO MONACO 12/27/2024 14:36:25 Final Observation Date Value Abnormality Reference (Units ) Status Folic Acid 12/27/2024 14:36:25 >20.0 >4.5 (ng/ mL) Final Performing Location LAB[facility]ATORY [facility] [place] - [address] [place] [address]
--- OUTSIDE RECORDS SUMMARY | 2025-02-04 07:30 | External Medical Summary | Summary of Care ---
Author Name Unknown Organization [facility] Address [address] [place] [address] Phone [phone] Care Team Providers Care Tailor Helper Name Role Phone Shelbie May MD Primary Care Provider Reason for Visit * Reason Comments Return Visit Encounter Details Date Type Department Care Team (Late st Contact Info) Description 01/22/2025 7:45 AM EDT Office Visit Gynecology/Obstetric s [facility] [address] [facility] [place] [address] Chaya Joseph PA-C [address] [facility] [place] [address] Supervision of other normal , antepartum*; Hypothyroidism affecting , antepartum; Antepartum anemia complicating ; Positive GBS test Allergies No known active allergiesdocumented as of this encounter (statuses as of 01/22/2025) Medications 19 29-1 MG Oral Tablet Chewable [...] breakfast or other meds) 90 Tablet 1 02/04/202 5 Active documented as of this encounter (statuses as of 01/22/2025) Active Problems Problem Noted Date Diagnosed Date [...] as of this encounter (statuses as of 01/22/2025) Resolved Problems Problem Noted Date Diagnosed Date [...] as of this encounter (statuses as of 01/22/2025) Immunizations Name Administration Dates Next Due COVID-19 [...] money to get more. Never true 09/15/2024 [place] Depression Scale Answer Date Recorded [place] Depression Scale Total 5 12/07/2024 The thought [...] Sign Reading Time Taken Comments Blood Pressure 110/62 01/22/2025 7:44 AM EDT Pulse - - Temperature - - Respiratory Rate - - Oxygen Saturation - - Inhaled Oxygen Concentration - - Weight 74.5 kg (164 lb 3.2 oz) 01/22/2025 7:44 A M EDT Height - - Body Mass Index 26.5 01/03/2025 1:36 PM EDT documented in this encounter Progress Notes * Chaya Joseph PA-C - 01/22/2025 8:01 AM EDT 39w2d Intermittent contractions/cramping at times. Denies LOF, VB. Baby is active. Some increase in discharge, pt states not like fluid breaking. Declines cervical check. Her preference is to avoid IOL at all cost. Did not have great induction experience in past and would like to go into natural labor. Reviewed risk/benefits and discuss growth of baby at this stage. Reviewed timing and not waiting to 42w+ for that she was agreeable to 41w6d IOL. Discussed NST and GARTH check if makes it to 41 wks. Labor precautions discussed. Given numbers to call. RTC in 1 week Chaya Joseph PA-C * Jenny Ron CMA - 01/22/2025 7:44 AM EDT 39w2d documented in this encounter Plan of Treatment Upcoming Encounters Date Type Department Care Team (Late st Contact Info) Description 01/29/2025 7:45 AM EDT Office Visit Gynecology/Obstetrics [facility] [address] [place] [address] Chaya Joseph PA-C [address] [place] [address] 05/09/2025 8:00 AM EDT Office Visit Family Practice [facility] [address] [place] [address] Shelbie May MD [address] [place] [address] Health Maintenance Due Date Last Done Comments [...] documented as of this encounter Care Teams Tailor Helper Relationship Specialty Start Date End Date Shelbie May MD [address] [place] [address] PCP - General Internal Medicine 08/31/22 documented as of this encounter
--- OUTSIDE RECORDS SUMMARY | 2025-02-04 07:30 | External Medical Summary ---
Author Name Unknown Address Unknown Organization K01:[facility]ORY [facility] - [address] [place] [address] Laboratory Report Ordering Provider Test Date Status JACINDAREYNALDO 12/27/2024 14:36:25 Final Observation Date Value Abnormality Reference (Units ) Status TSH 12/27/2024 14:36:25 1.67 0.27-4.20 (uIU/mL) Final Performing Location LABORATORY [facility] - [address] [place] [address]
--- OUTSIDE RECORDS SUMMARY | 2025-02-04 07:30 | External Medical Summary ---
Author Name Unknown Address Unknown Organization K01:[place] [facility] [place] [facility] [address]. [facility] [address] Laboratory Report Ordering Provider Test Date Status REYNALDO MONACO 12/27/2024 14:36:25 Final Observation Date Value Abnormality Reference (Units ) Status WBC, Total 12/27/2024 14:36:25 9.84 4.00-10.8 0 (K/uL) Final RBC 12/27/2024 14:36:25 3.50 3.85-5.15 (M/uL) Final Hemoglobin 12/27/2024 14:36:25 11.5 Below low normal 12 .0-15.3 (g/dL) Final Anemia reflex testing trigge rs on a HGB < 12.0 for Females and HGB < 13.0 for Males in accordance with the WHO Anemia Guidelines
Anemia reflex testing triggers on a HGB < 12.0 for Females and HGB < 13.0 for Males in accordance with the WHO Anemia Guidelines HCT 12/27/2024 14:36:25 36.0 36.0-45.2 (%) Final MCV 12/27/2024 14:36:25 102.9 81.5-97.5 (fL) Final MCH 12/27/2024 14:36:25 32.9 27.0-34.0 (pg) Final MCHC 12/27/2024 14:36:25 31.9 32.0-36.0 (g/dL) Final RDW 12/27/2024 14:36:25 12.7 11.5-15.5 (%) Final Platelets 12/27/2024 14:36:25 226 140-400 (K /uL) Final MPV 12/27/2024 14:36:25 12.5 6.6-11.1 ( fL) Final Nucleated erythrocytes/100 leukocytes [Ratio] in Blood by Automated count 12/27/2024 14:36:25 0 <=0 (/100 WBCs) [facility] Performing Location [place] [facility] [place] [address] [facility] [address]
--- OUTSIDE RECORDS SUMMARY | 2025-02-04 07:30 | External Medical Summary | Summary of Care ---
Author Name Unknown Organization [facility] Address [address] [place] [address] Phone [phone] Care Team Providers Care Sexual Health Physician Name Role Phone Shelbie May MD Primary Care Provider Reason for Visit * Reason Comments Return Visit Encounter Details Date Type Department Care Team (Late st Contact Info) Description 01/03/2025 1:45 PM EDT Office Visit Gynecology/Obstetric s Spencer Deshpande [address] [facility] [place] [address] Chaya Joseph PA-C [address] [facility] [place] [address] Supervision of other normal , antepartum*; Hypothyroidism affecting , antepartum; Antepartum anemia complicating Allergies No known active allergiesdocumented as of this encounter (statuses as of 01/03/2025) Medications 19 29-1 MG Oral Tablet Chewable [...] as of this encounter (statuses as of 01/03/2025) Active Problems Problem Noted Date Diagnosed Date [...] as of this encounter (statuses as of 01/03/2025) Resolved Problems Problem Noted Date Diagnosed Date [...] as of this encounter (statuses as of 01/03/2025) Immunizations Name Administration Dates Next Due COVID-19 mRNA, LNP-s, No Pre serve, 2-Dose Series (Pfizer) 09/05/2021,12/30/2020,12/09/2020 COVID-19, MRNA-LNP, 24-25, P R, 30MCG/0.3ML, IM, 12YRS AND ABOVE ([employer]-Comirnaty) 07/18/2024 Seasonal Influenza Virus Vac cine, Unspecified [...] money to get more. Never true 09/15/2024 Orange Depression Scale Answer Date Recorded Orange Depression Scale Total 5 12/07/2024 The thought [...] Sign Reading Time Taken Comments Blood Pressure 116/74 01/03/2025 1:36 PM EDT Pulse - - Temperature - - Respiratory Rate - - Oxygen Saturation - - Inhaled Oxygen Concentration - - Weight 71.2 kg (157 lb) 01/03/2025 1:36 PM EDT Height 167.6 cm (5' 6") 01/03/2025 1:36 PM EDT Body Mass Index 25.34 01/03/2025 1:36 PM EDT documented in this encounter Progress Notes * Chaya Joseph PA-C - 01/03/2025 1:53 PM EDT 36w4d No complaints. Baby very active. TSH WNL as of 12/27 Denies LOF, Ctx, VB. Due for GBS, collected. Labor precautions reviewed RTC in 1 week Chaya Joseph PA-C documented in this encounter Nursing Notes * Nelly Hernandez LPN - 01/03/2025 1:36 PM EDT 36W4D GBS today. documented in this encounter Plan of Treatment Upcoming Encounters Date Type Department Care Team (Late st Contact Info) Description 01/10/2025 8:15 AM EDT Office Visit Gynecology/Obstetrics [facility] [address] [place] [address] Bailey Bashir CRNP [address] [place] [address] 01/22/2025 7:45 AM EDT Office Visit Gynecology/Obstetrics [facility] [address] [place] [address] Chaya Joseph PA-C [address] [place] [address] 01/29/2025 7:45 AM EDT Office Visit Gynecology/Obstetrics [facility] [address] [place] [address] Chaya Joseph PA-C [address] [place] [address] 05/09/2025 8:00 AM EDT Office Visit Family Practice [facility] [address] [place] [address] Shelbie May MD [address] [place] [address] Pending Results Name Type Priority Associated Diagnoses Date /Time GROUP B STREP CULTURE/PCR Lab Routine Supervision of other normal , antepartum 01/03/2025 3:19 PM EDT Scheduled Orders Name Type Priority Associated Diagnoses Orde r Schedule GROUP B STREP CULTURE/PCR Lab Routine Supervision of other normal , antepartum Expected: 01/03/2025, Expires: 01/03/2026 Health Maintenance Due Date Last Done Comments [...] documented as of this encounter Care Teams Sexual Health Physician Relationship Specialty Start Date End Date Shelbie May MD [address] [place] [address] PCP - General Internal Medicine 08/31/22 documented as of this encounter
--- OUTSIDE RECORDS SUMMARY | 2025-02-04 07:30 | External Medical Summary ---
Author Name Unknown Address Unknown Organization K01:[place] [facility] [place] [address] [place] [address] [place] [address] Laboratory Report Ordering Provider Test Date Status REYNALDO MONACO 12/27/2024 14:36:25 Final Observation Date Value Abnormality Reference (Units ) Status Ferritin 12/27/2024 14:36:25 39 13-150 (ng /mL) Final Performing Location [facility] - [address] [facility] [place] [address]
--- OUTSIDE RECORDS SUMMARY | 2025-02-04 07:30 | External Medical Summary | Summary of Care ---
Author Name Unknown Organization [facility] Address [address] [place] [address] Phone [phone] Care Team Providers Care Immigration Specialist Name Role Phone Shelbie May MD Primary Care Provider Reason for Visit * Reason Comments Return Visit Encounter Details Date Type Department Care Team (Late st Contact Info) Description 01/03/2025 1:45 PM EDT Office Visit Gynecology/Obstetric s Spencer Deshpande [address] [facility] [place] [address] Chaya Joseph PA-C [address] [facility] [address] Supervision of other normal , antepartum*; Hypothyroidism [...] P R, 30MCG/0.3ML, IM, 12YRS AND ABOVE ([employer]-Comirnaty) 07/18/2024 Seasonal Influenza Virus Vac cine, Unspecified [...] money to get more. Never true 09/15/2024 Gate Depression Scale Answer Date Recorded Gate Depression Scale Total 5 12/07/2024 The thought [...] precautions reviewed RTC in 1 week Chaya Jospeh PA-C documented in this encounter Nursing Notes * Nelly Hernandez LPN - 01/03/2025 1:36 PM EDT 36W4D GBS today. documented in this encounter Plan of Treatment Upcoming Encounters Date Type Department Care Team (Late st Contact Info) Description 01/10/2025 8:15 AM EDT Office Visit Gynecology/Obstetrics [facility] [address] [place] [address] Bailey Bashir CRNP [address] [place] [address] 01/22/2025 7:45 AM EDT Office Visit Gynecology/Obstetrics [facility] [address] [place] [address] Chaya Joseph PA-C [address] [place] [address] 01/29/2025 7:45 AM EDT Office Visit Gynecology/Obstetrics [facility] [address] [place] [address] Chaya Joseph PA-C [address] [place] [address] 05/09/2025 8:00 AM EDT Office Visit Family Practice [facility] [address] [place] [address] Shelbie May MD [address] [place] [address] Pending Results Name Type Priority Associated Diagnoses [...] documented as of this encounter Care Teams Immigration Specialist Relationship Specialty Start Date End Date Shelbie May MD [address] [place] [address] PCP - General Internal Medicine 08/31/22 documented as of this encounter
--- OUTSIDE RECORDS SUMMARY | 2025-02-04 07:30 | External Medical Summary | Summary of Care ---
Author Name Unknown Organization [facility] Address [address] [place] [address] Phone [phone] Care Team Providers Care Straightedge Machine Operator Helper Name Role Phone Shelbie May MD Primary Care Provider Reason for Visit * Reason Comments Return Visit Encounter Details Date Type Department Care Team (Latest Contact Info) Description 01/10/2025 8:15 AM EDT Office Visit Gynecology/Obstetri mike Deshpande [address] [place] [place] [address] Bailey Bashir CRNP [address] [address] Hypothyroidism affecting , antepartum*; Supervision of other normal , antepartum; Antepartum anemia complicating ; Positive GBS test Allergies No known active allergiesdocumented as of this encounter (statuses as of 01/10/2025) Medications 19 29-1 MG Oral Tablet Chewable [...] as of this encounter (statuses as of 01/10/2025) Active Problems Problem Noted Date Diagnosed Date [...] as of this encounter (statuses as of 01/10/2025) Resolved Problems Problem Noted Date Diagnosed Date [...] as of this encounter (statuses as of 01/10/2025) Immunizations Name Administration Dates Next Due COVID-19 [...] money to get more. Never true 09/15/2024 Belle Depression Scale Answer Date Recorded Belle Depression Scale Total 5 12/07/2024 The thought [...] Sign Reading Time Taken Comments Blood Pressure 120/78 01/10/2025 8:20 AM EDT Pulse - - Temperature - - Respiratory Rate - - Oxygen Saturation - - Inhaled Oxygen Concentration - - Weight 71.7 kg (158 lb) 01/10/2025 8:20 AM EDT Height - - Body Mass Index 25.5 01/03/2025 1:36 PM EDT documented in this encounter Progress Notes * Bailey Bashir CRNP - 01/10/2025 8:30 AM EDT Images from the original note were not included. Subjective Nadia Reyna is a 29 year old female presenting for Return Visit History of Present Illness The patient, who is currently , presents with diarrhea. She believes it is due to a gastrointestinal bug, as her son had similar symptoms recently. She reports no other symptoms such as nausea or vomiting and feels otherwise well. She is not concerned about maintaining hydration during thistime. In addition to the diarrhea, the patient has questions about her upcoming labor and delivery. She tested positive for Group B Streptococcus (GBS) and is concerned about the need for antibiotics during labor. She expresses a desire to give without an epidural and to not be continuously hooked up to an IV. She also inquires about the hospital's policies on delayed cord clamping and pushing positions. The patient also mentions taking multivitamins and has a contraception plan in place. Objective BP 120/78 | Wt 71.7 kg (158 lb) | LMP 04/22/2024 (Exact Date) | BMI 25.50 kg/m² | BSA 1.83 m² Physical Exam VITALS: FHR:130 Results Assessment and Plan Assessment & Plan management Discussed labor and delivery preferences, including unmedicated and delayed cord clamping. Delayed cord clamping is standard practice. - Discuss labor and delivery preferences with attending physician at the hospital. - Confirm delayed cord clamping with nursing staff during labor. Group B Streptococcus (GBS) colonization GBS positive. Previous rapid labor precluded antibiotic administration. Prefers minimal IV use during labor. Diarrhea Acute diarrhea likely due to gastrointestinal bug. Maintaining hydration, no nausea or vomiting. - Recommend loperamide as needed, following package directions, caution against overuse. - Encourage maintaining hydration. General Health Maintenance No contractions, bleeding, or fluid leakage. Baby moving well. Taking vitamins and has contraception plan. - Continue taking vitamins. - Follow contraception plan. Wrap-Up Follow Up: Return in about 1 week (around 01/17/2025) for ruth. | For: ruth Text in this note was generated using an [employer] documentation service. I discussed the use of a device to record and summarize our discussion today. All persons present during the encounter consented to its use. * Jenny Ron CMA - 01/10/2025 8:20 AM EDT 37w4d documented in this encounter Plan of Treatment Upcoming Encounters Date Type Department Care Team (Late st Contact Info) Description 01/22/2025 7:45 AM EDT Office Visit Gynecology/Obstetrics [facility] [address] [place] [address] Chaya Joseph PA-C [address] [place] [address] 01/29/2025 7:45 AM EDT Office Visit Gynecology/Obstetrics [facility] [address] [place] [address] Chaya Joseph PA-C [address] [place] [address] 05/09/2025 8:00 AM EDT Office Visit [facility] [address] [place] [address] Shelbie May MD [address] [place] [address] Health Maintenance Due Date Last Done Comments [...] Author Reminders Care Plan OB Reminders No Deliahart, Provider documented as of this encounter Medical [...] documented as of this encounter Care Teams Straightedge Machine Operator Helper Relationship Specialty Start Date End Date Shelbie May MD [address] [place] [address] PCP - General Internal Medicine 08/31/22 documented as of this encounter"
--- OUTSIDE RECORDS SUMMARY | 2025-02-04 07:30 | External Medical Summary ---
Author Name Unknown Address Unknown Organization K01:[facility] [facility] [place] [address] [place] [address] Laboratory Report Ordering Provider Test Date Status JACINDAREYNALDO 12/27/2024 14:36:25 Final Observation Date Value Abnormality Reference (Units ) Status Creatinine 12/27/2024 14:36:25 0.7 0.5-1.0 (mg/dL) Final Glomerular filtration rate/1.73 sq M.predicted [Volume Rate/Area] in Serum, Plasma or Blood by Creatinine-based formula (CKD-EPI) 12/27/2024 14:36:25 >90 >=60 (mL/min) Final eGFR is calculated based on the CKD-EPI 2020 equation. Performing Location [facility] [place] [address] [place] [address]
--- OUTSIDE RECORDS SUMMARY | 2025-02-04 07:30 | External Medical Summary ---
Author Name Unknown Address Unknown Organization K01:[facility] [address] [facility] [address] Laboratory Report Ordering Provider Test Date Status JACINDABACKER 12/27/2024 14:36:25 Final Observation Date Value Abnormality Reference (Units ) Status SYNC LEUKOCYTES IN BLOOD BY AUTOMATED COUNT 12/27/2024 14:36:25 9.84 4.00-10.80 (K/uL) Final Segs 12/27/2024 14:36:25 71.4 40.0-75.0 (%) Final Lymphs % 12/27/2024 14:36:25 19.9 18.0-42.0 (%) Final Monos 12/27/2024 14:36:25 6.8 1.0-11.0 (%) Final Eosinophils 12/27/2024 14:36:25 1.2 0.0-6.0 (%) Final Basos 12/27/2024 14:36:25 0.3 0.0-2.0 (%) Final Immature Granulocyte, Percent 12/27/2024 14:36:25 0.4 0.0-2.0 (%) Final Absolute Segs 12/27/2024 14:36:25 7.02 1.80-7.70 (K/uL) Final Lymphs, absolute 12/27/2024 14:36:25 1.96 1.00-4.80 (K/ul) Final Monos, Abs 12/27/2024 14:36:25 0.67 0.00-1.10 (K/uL) Final Eos, Abs 12/27/2024 14:36:25 0.12 0.00-0.70 (K/uL) Final Basos, Abs 12/27/2024 14:36:25 0.03 0.00-0.20 (K/uL) Final Immature Granulocytes, Number 12/27/2024 14:36:25 0.04 0.00-0.20 (K/uL) Final Performing Location LABORATORY [facility] - [address] [facility] [address]
--- OUTSIDE RECORDS SUMMARY | 2025-02-04 07:30 | External Medical Summary ---
Author Name Unknown Address Unknown Organization K01:[place] [place] - [facility] [address] [facility] [address] Laboratory Report Ordering Provider Test Date Status REYNALDO MONACO 12/27/2024 14:36:25 Final Observation Date Value Abnormality Reference (Units ) Status Retic, % (auto) 12/27/2024 14:36:25 3.13 Above high normal 0.80-1.90 (%) Final Reticulocytes, Absolute 12/27/2024 14:36:25 110.2 Above high normal 31.3-100.1 (K/uL) Final Reticulocyte fraction, immature 12/27/2024 14:36:25 18.1 2.5-20.6 (%) Final Reticulocyte HGB 12/27/2024 14:36:25 36.8 29.7-37.4 (pg) Final Performing Location [facility] [place] [facility] [address]
--- OUTSIDE RECORDS SUMMARY | 2025-02-04 07:30 | External Medical Summary ---
Author Name Unknown Address Unknown Organization K01:LABORATORY [place] [address] [place] [address] Laboratory Report Ordering Provider Test Date Status RIGO HERNÁNDEZ 01/03/2025 15:19:29 Final Observation Date Value Abnormality Reference (Units ) Status Streptococcus agalactiae DNA [Presence] in Specimen by JEREMY with probe detection 01/03/2025 15:19:29 Positive Abnormal Negative Final Group B Streptococcus detect ed by culture-enhanced PCR (amplified probe). GBS GBSCT - [facility] 01/03/2025 15:19:29 14.2 Final GBS SPCCT - [facility] 01/03/2025 15:19:29 0.0 Final Performing Location LABORATORY [facility] [place] - [facility] [address] [place] [address]
--- OUTSIDE RECORDS SUMMARY | 2025-02-04 07:31 | External Medical Summary | Summary of Care ---
Author Name Unknown Organization [facility] Address [address] [place] [address] Phone [phone] Care Team Providers Care Steam Gigger Name Role Phone Shelbie May MD Primary Care Provider Reason for Visit * Reason Comments Skin Check Follow Up Skin check- fam hist ory of mm Encounter Details Date Type Department Care Team (Late st Contact Info) Description 11/30/2024 12:40 PM EST Office Visit Dermatology Deanna Meneses [place] [address] [facility] [address] Ariana Tejeda PA-C [address] [facility] [address] Skin exam, screening for cancer*; Family history of malignant melanoma; Cafe au lait spots; Port wine stain; Multiple nevi Allergies No known active allergiesdocumented as of this encounter (statuses as of 12/05/2024) Medications 19 29-1 MG Oral Tablet Chewable [...] breakfast or other meds) 90 Tablet 1 Active documented as of this encounter (statuses as of 12/05/2024) Active Problems Problem Noted Date Diagnosed Date Antepartum anemia complicating 025 Abnormal glucose tolerance in mother complicatin g 11/21/2024 Overview (12/04/2024): Passed 3 hr GTT Supervision of other normal , antepartu m 10/13/2022 Anxiety 09/12/2021 Acquired hypothyroidism 06/19/2021 Family history of malignant melanoma 06/19/2021 Hypothyroidism affecting , antepartum 1 11/14/2019 Assessment & Plan (10/28/2020 10:27 AM EST): Reminded of need for TSH. Estimated Date of Delivery Comme nts Yes 01/27/2025 Based on last me nstrual period of 04/22/2024 (Exact Date) documented as of this encounter (statuses as of 12/05/2024) Resolved Problems Problem Noted Date Diagnosed Date Resolved Date GBS (group B streptococcus) UTI complicating 04/29/2023 [...] as of this encounter (statuses as of 12/05/2024) Immunizations Name Administration Dates Next Due COVID-19 mRNA, LNP-s, No Pre serve, 2-Dose Series ([employer]) 09/05/2021,12/30/2020,12/09/2020 COVID-19, MRNA-LNP, 24-25, P R, 30MCG/0.3ML, IM, 12YRS AND ABOVE ([employer]-Comirnaty) 07/18/2024 Seasonal Influenza Virus Vac cine, Unspecified [...] money to get more. Never true 09/15/2024 [place] Depression Scale Answer Date Recorded [place] Depression Scale Total 8 07/04/2024 The thought of harming myself has occurred to me . Never 07/04/2024 Childcare Answer Date Recorded Do you feel [...] AM EDT documented as of this encounter Progress Notes * Jah Ross MD - 12/05/2024 5:47 AM EDT I have reviewed the charting notes and orders and associated images and agree with the assessment and plan of Ariana Tejeda PA-C I was available for consultation during and after the visit Jah Ross MD 12/05/2024 5:47 AM * Ariana Tejeda PA-C - 11/30/2024 1:05 PM EST SUBJECTIVE: History of Present Illness: Nadia Reyna is a 28 year old female seen today for follow up of skin check. Date Last Appointment:11/09/2022 (in office) Mother had MM and multiple BCC Very compliant with daily sunscreen. Has 2 kids, 3 and 1, , due with 3rd in 2 months No new or concerning lesions REVIEW OF SYSTEMS: SKIN: No other new or changing moles. HEME/LYMPH: No new or enlarging lumps or bumps. MEDICA TIONS: Current Outpatient Medications Medication Sig Dispense Refill 19 29-1 MG Oral Tablet Chewable Take by mouth . Clindamycin Phosphate 1 % External Lotion Apply to face daily for acne 60 mL 3 Vitron-C 65-125 MG Oral Tablet (Iron-Vitamin C 65-125 mg per tab) Take 1 Tablet by mouth in the morning. Levothyroxine Sodium 75 MCG Oral Tablet (Levoxyl) Take 1 Tablet by mouth daily first thing in the morning. (at least 30 min prior to breakfast or other meds) 90 Tablet 1 Comirnaty 30 MCG/0.3ML Intramuscular Suspension Prefilled Syringe Inject into a large muscle. (Patient not taking: Reported on 08/02/2024) 0.3 mL 0 No current facility-administered medications for this visit. ALLERG IES: Patient has no known allergies. OBJECTIVE: GEN: Healthy, alert, no distress, appears oriented, pleasant, and cooperative. SKIN: Detailed exam of hair, face including lids and lips, neck, chest, abdomen, back, bilateral upper ext. (arm, hand, fingers), bilateral lower ext. (leg, foot, toes), and palpation of scalp completed and are normal except: 1. Scattered benign appearing lesions over examined skin including scattered benign and relatively monomorphic appearing melanocytic nevi. 2. R posterior leg- 2cm diffuse carreon patch 3. R posterior upper leg- diffuse pink macular area ASSESS MENT/PLAN: 1. Multiple nevi. Benign nature was discussed and no further intervention needed. Advised to call with any changes. 2. Cafe au lait. Benign nature was discussed and no further intervention needed. Advised to call with any changes. No changes 3. Favor port-wine stain. Benign nature was discussed and no further intervention needed. Advised to call with any changes. No changes 4. Family hx MM. - continue sun protection - ABCDEs discussed Discussed sun protection with patient including proper use of sunscreens (30spf, reapply every 2 hours) and protective clothing. Follow-up: 1 years (fam hx MM) There were no barriers tolearning and no other pain was related to today's visit. The patient and/or person accompanying patient demonstrates understanding of the visit and treatment. Ariana Tejeda PA-C 11/02/2023 1:18 PM documented in this encounter Nursing Notes * Trinh Winter LPN - 11/30/2024 12:29 PM EST Patient identified by name and date of . Do you have any concerns about pain management for today's visit? No Living Will or Advance Directive for Health Care as noted on problem list. [facility] is a way you can talk to your provider online through e-mail. Would you like to sign up? I can activate it for you? ALREADY ACTIVE Chief Complaint Patient presents with Skin Check Follow Up Skin check- fam history of mm documented in this encounter Plan of Treatment Upcoming Encounters Date Type Department Care Team (Late st Contact Info) Description 12/07/2024 3:30 PM EDT Office Visit Gynecology/Obstetrics [facility] [address] [address] Chaya Joseph PA-C [address] [address] 05/09/2025 8:00 AM EDT Office Visit Family Practice [facility] [address] [place] [address] Shelbie May MD [address] [place] [address] Health Maintenance Due Date Last Done Comments Hepatitis B Vaccine (1 of 3 - 19+ 3-dose series) 2014 Depression Screening 08/06/2022 08/06/2021 Pap Smear 10/13/2025 10/13/2022, 12/16/2017 TSH 11/21/2025 11/21/2024, 12/12/2023, 07/04/2024, Additional history exists DTap/Tdap Vaccines (4 - Td or Tdap) 10/31/2034 10/31/2024, 02/25/2023, 11/25/2020 COVID-19 Vaccine Discontinued 07/18/2024, 06/2021, 12/30/2020, Additional [...] Not on filedocumented as of this encounter Procedures Procedure Name Priority Date/Time Associated Diagnosis Comments DERM IMAGE (SITE) Routine 11/30/2024 Skin exam, screening for cancer documented in this encounter Results * DERM IMAGE (SITE) (11/30/2024) 11/30/2024 us Ariana Tejeda PA-C DIGITAL PHOTOGRAPHY [address] Result documented in this encounter Visit Diagnoses Diagnosis Supervision of normal first , antepartum- Primary Hypothyroidism affecting , antepartum Skin exam, screening for cancer- Primary Screening for malignant neoplasm of the skin Family history of malignant melanoma Family history of other specified malignant neoplasm Cafe au lait spots Port wine stain Congenital vascular hamartomas Multiple nevi Benign neoplasm of skin, site unspecified documented in this encounter Additional Health Concerns Active Problems Noted Date Diagnosed Date OB Reminders 07/04/2024 documented as of this encounter Care Teams Steam Gigger Relationship Specialty Start Date End Date Shelbie May MD [address] [facility] [place] [address] PCP - General Internal Medicine 08/31/22 documented as of this encounter
--- OUTSIDE RECORDS SUMMARY | 2025-02-04 07:31 | External Medical Summary ---
Author Name Unknown Address Unknown Organization [id number]:[facility]AT[facility] [address] [place] [address] Laboratory Report Ordering Provider Test Date Status GERRI PULLIAM 12/01/2024 08:13:35 Final Observation Date Value Abnormality Reference (Units ) Status Glucose [Mass/volume] in Serum or Plasma --1 hour post dose glucose 12/01/2024 08:13:35 166 70-179 (mg/dL) Final Performing Location [facility]ORY [facility] [address] [place] [address]
--- OUTSIDE RECORDS SUMMARY | 2025-02-04 07:31 | External Medical Summary | Summary of Care ---
Author Name Unknown Organization [facility] Address [address] [place] [address] Phone [phone] Care Team Providers Care Six Pack Loader Operator Name Role Phone Shelbie May MD Primary Care Provider Encounter Details Date Type Department Care Team (Late st Contact Info) Description 11/22/2024 Orders Only Laboratory, [facility] [address] [facility] [place] [address] Angelia Trevino PA-C [address] [facility] [address] Antepartum anemia complicating * Allergies No known active allergiesdocumented as of this encounter (statuses as of 11/22/2024) Medications 19 29-1 MG Oral Tablet Chewable [...] as of this encounter (statuses as of 11/22/2024) Active Problems Problem Noted Date Diagnosed Date Antepartum anemia complicating 025 Abnormal glucose tolerance in mother complicatin g 11/21/2024 Supervision of other normal , antepartu m 10/13/2022 Anxiety 09/12/2021 Acquired hypothyroidism 06/19/2021 Family history of malignant melanoma 06/19/2021 Hypothyroidism affecting , antepartum 1 11/14/2019 Assessment & Plan (10/28/2020 10:27 AM EST): Reminded of need for TSH. Estimated Date of Delivery Comme nts Yes 01/27/2025 Based on last me nstrual period of 04/22/2024 (Exact Date) documented as of this encounter (statuses as of 11/22/2024) Resolved Problems Problem Noted Date Diagnosed Date [...] as of this encounter (statuses as of 11/22/2024) Immunizations Name Administration Dates Next Due COVID-19 mRNA, LNP-s, No Pre serve, 2-Dose Series ([employer]) 09/05/2021,12/30/2020,12/09/2020 COVID-19, MRNA-LNP, 24-25, P R, 30MCG/0.3ML, [...] money to get more. Never true 09/15/2024 [place] Depression Scale Answer Date Recorded [place] Depression Scale Total 8 07/04/2024 The thought [...] PM EST Office Visit Dermatology Deanna Meneses [place] [address] [place] [address] Airana Tejeda PA-C [address] [place] [address] 12/01/2024 7:00 AM EST Laboratory Laboratory, [facility] [address] [facility] [place] [address] [facility] [address] [place] [place] [address] 12/07/2024 3:30 PM EDT Office Visit Gynecology/Obstetrics [facility] [address] [place] [address] Chaya Joseph PA-C [address] [place] [address] 05/09/2025 8:00 AM EDT Office Visit Family Practice [facility] [address] [place] [address] Shelbie May MD [address] [place] [address] Scheduled Orders Name Type Priority Associated Diagnoses Orde r Schedule CBC WITH WBC DIFFERENTIAL AND ANEMIA REFLEX WORKUP Lab Routine Antepartum anemia complicating Expected: 12/20/2024, Expires: 11/22/2025 Health Maintenance Due Date Last Done Comments [...] Author Reminders Care Plan OB Reminders No Hannaht, Provider documented as of this encounter Medical Devices Not on filedocumented as of this encounter Visit Diagnoses Diagnosis Supervision of normal first , antepartum- Primary Hypothyroidism affecting , antepartum Antepartum anemia complicating - Primary Anemia, antepartum documented in this encounter Additional Health Concerns Active Problems Noted Date Diagnosed Date OB Reminders 07/04/2024 documented as of this encounter Care Teams Six Pack Loader Operator Relationship Specialty Start Date End Date Shelbie May MD [address] [place] [address] PCP - General Internal Medicine 08/31/22 documented as of this encounter
--- OUTSIDE RECORDS SUMMARY | 2025-02-04 07:31 | External Medical Summary | Summary of Care ---
Author Name Unknown Organization [facility] Address [address] [place] [address] Phone [phone] Care Team Providers Care Refuge Worker Name Role Phone Shelbie May MD Primary Care Provider Reason for Visit * Reason Onset Date Comments Test Results 11/22/2024 Encounter Details Date Type Department Care Team (Late st Contact Info) Description 11/22/2024 Telephone [facility] [address] [facility] [place] [address] Angelia Trevino PA-C [address] [facility] [place] [address] Test Results Allergies No known active allergiesdocumented as of [...] mRNA, LNP-s, No Pre serve, 2-Dose Series ([employer]) 09/05/2021,12/30/2020,12/09/2020 COVID-19, MRNA-LNP, 24-25, P R, 30MCG/0.3ML, [...] money to get more. Never true 09/15/2024 [place] Depression Scale Answer Date Recorded [place] Depression Scale Total 8 07/04/2024 The thought [...] money to buy more. Never true 09/15/20 Within the past 12 months, t he [...] AM EDT documented as of this encounter Miscellaneous Notes * Telephone Encounter - Dalia Meneses RN - 11/22/2024 1:24 PM EST Pt is aware and agreeable. * Telephone Encounter - Teodora Parekh LPN - 11/22/2024 1:15 PM EST ----- Message from Angelia Trevino sent at 11/22/2024 12:58 PM EST ----- Please inform patient I have reviewed the results of her 3rd trimester labs - RPR non reactive. TSHnormal range for this stage of . CBC continuing to show Anemia, slightly worsened. Please have her increase her iron supplementationto twice daily - plan to repeat this lab in 4 weeks. Reminder I have placed an order for a 3 hour GTT that she can complete at her earliest convenience. Thanks! Angelia Trevino PA-C documented in this encounter Plan of Treatment Upcoming Encounters Date Type Department Care Team (Late st Contact Info) Description 11/30/2024 12:40 PM EST [facility] [address] [facility] [place] [address] Ariana Tejeda PA-C [address] [facility] [place] [address] 12/01/2024 7:00 AM EST Laboratory Laboratory, [facility] [address] [place] [address] [facility] [address] [place] [address] 12/07/2024 3:30 PM EDT Office Visit Gynecology/Obstetrics [facility] [address] [address] Chaya Joseph PA-C [address] [place] [address] 05/09/2025 8:00 AM EDT Office Visit Family Practice [facility] [address] [address] [address] Shelbie May MD [address] [place] [address] Health Maintenance Due Date Last Done Comments [...] Not on filedocumented as of this encounter Additional Health Concerns Active Problems Noted Date Diagnosed Date OB Reminders 07/04/2024 documented as of this encounter Care Teams Refuge Worker Relationship Specialty Start Date End Date Shelbie May MD [address] [place] [address] PCP - General Internal Medicine 08/31/22 documented as of this encounter
--- OUTSIDE RECORDS SUMMARY | 2025-02-04 07:31 | External Medical Summary | Summary of Care ---
Author Name Unknown Organization [facility] Address [address] [place] [address] Phone [phone] Care Team Providers Care Park Manager Name Role Phone Shelbie May MD Primary Care Provider Encounter Details Date Type Department Care Team (Late st Contact Info) Description 11/22/2024 Telephone Gynecology/Obstetrics [facility] [address] [place] [address] Angelia Trevino PA-C [address] [place] [address] Allergies No known active allergiesdocumented as of [...] Noted Date Diagnosed Date Antepartum anemia complicating 02/26/2 025 Abnormal glucose tolerance in mother complicatin [...] mRNA, LNP-s, No Pre serve, 2-Dose Series ([employer] 09/05/2021,12/30/2020,12/09/2020 COVID-19, MRNA-LNP, 24-25, P R, 30MCG/0.3ML, IM, 12YRS AND ABOVE ([employer]Comirnaty) 07/18/2024 Seasonal Influenza Virus Vac cine, Unspecified [...] money to get more. Never true 09/15/2024 [place] Depression Scale Answer Date Recorded [place] Depression Scale Total 8 07/04/2024 The thought [...] Encounter - Dalia Meneses RN - 11/22/2024 2:59 PM EST See other encounter. * Telephone Encounter - Dalia Meneses RN - 11/22/2024 2:57 PM EST ----- Message from Angelia Trevino [...] 11/30/2024 12:40 PM EST Office Visit Dermatology [facility] [place] [address] [facility] [place] [address] Ariana Tejeda PA-C [address] [facility] [place] [address] 12/01/2024 7:00 AM EST Laboratory Laboratory, [facility] [address] [place] [address] [facility] [address] [place] [address] 12/07/2024 3:30 PM EDT Office Visit Gynecology/Obstetrics [facility] [address] [place] [address] Chaya Joseph PA-C [address] [place] [address] 05/09/2025 8:00 AM EDT Office Visit Family Practice [facility] [address] [address] Shelbie May MD [address] [place] [address] Health Maintenance Due Date Last Done Comments [...] Author Reminders Care Plan OB Reminders No Yunior Fraire documented as of this encounter Medical Devices Not on filedocumented as of this encounter Additional Health Concerns Active Problems Noted Date Diagnosed Date OB Reminders 07/04/2024 documented as of this encounter Care Teams Park Manager Relationship Specialty Start Date End Date Shelbie May MD [address] [place] [address] PCP - General Internal Medicine 08/31/22 documented as of this encounter
--- OUTSIDE RECORDS SUMMARY | 2025-02-04 07:31 | External Medical Summary | Summary of Care ---
Author Name Unknown Organization [facility] Address [address] [place] [address] Phone [phone] Care Team Providers Care Manager Health Name Role Phone Shelbie May MD Primary Care Provider Reason for Visit * Reason Comments Return Visit Encounter Details Date Type Department Care Team (Late st Contact Info) Description 12/07/2024 3:30 PM EDT Office Visit Gynecology/Obstetric s [facility] Deshpande [address] [facility] [place] [address] Chaya Joseph PA-C [address] [facility] [place] [address] Supervision of other normal , antepartum*; Hypothyroidism affecting , antepartum; Abnormal glucose tolerance in mother complicating Allergies No known active allergiesdocumented as of this encounter (statuses as of 12/07/2024) Medications 19 29-1 MG Oral Tablet Chewable [...] as of this encounter (statuses as of 12/07/2024) Active Problems Problem Noted Date Diagnosed Date [...] as of this encounter (statuses as of 12/07/2024) Resolved Problems Problem Noted Date Diagnosed Date [...] as of this encounter (statuses as of 12/07/2024) Immunizations Name Administration Dates Next Due COVID-19 mRNA, LNP-s, No Pre serve, 2-Dose Series ([employer]) 09/05/2021,12/30/2020,12/09/2020 COVID-19, MRNA-LNP, 24-25, P R, 30MCG/0.3ML, IM, 12YRS AND ABOVE ([employer]) 07/18/2024 Seasonal Influenza Virus Vac cine, Unspecified [...] money to get more. Never true 09/15/2024 [place] Depression Scale Answer Date Recorded [place] Depression Scale Total 5 12/07/2024 The thought [...] Sign Reading Time Taken Comments Blood Pressure 100/70 12/07/2024 3:17 PM EDT Pulse - - Temperature - - Respiratory Rate - - Oxygen Saturation - - Inhaled Oxygen Concentration - - Weight 69.4 kg (153 lb) 12/07/2024 3:17 PM EDT Height 167.6 cm (5' 6") 12/07/2024 3:17 PM EDT Body Mass Index 24.69 12/07/2024 3:17 PM EDT documented in this encounter Progress Notes * Chaya Joseph PA-C - 12/07/2024 3:32 PM EDT 32w5d Wanted to discuss iron/CBC. On daily iron, increased to BID with third tri labs. Reviewed with her.Will continue BID dosing. Plan repeat labs next visit. Denies VB, LOF. BH contractions. Pos fm. RTC in 2 weeks Chaya Joseph PA-C documented in this encounter Nursing Notes * Nelly Hernandez LPN - 12/07/2024 3:20 PM EDT 32w5d Discuss recent blood work. documented in this encounter Plan of Treatment Upcoming Encounters Date Type Department Care Team (Late st Contact Info) Description 12/27/2024 2:30 PM EDT Office Visit Gynecology/Obstetrics [facility] [address] [address] Tri Griffiths CRNP [address] [address] 05/09/2025 8:00 AM EDT Office Visit Family Practice [facility] [address] [address] Shelbie May MD [address] [place] [address] Health Maintenance Due Date Last Done Comments [...] , antepartum- Primary Hypothyroidism affecting , antepartum Abnormal glucose tolerance in mother complicating Abnormal maternal glucose tolerance, complicating , childbirth, or the puerperium, unspecified as to episode of care documented in this encounter Additional Health Concerns Active Problems Noted Date Diagnosed Date OB Reminders 07/04/2024 documented as of this encounter Care Teams Manager Health Relationship Specialty Start Date End Date Shelbie May MD [address] [place] [address] PCP - General Internal Medicine 08/31/22 documented as of this encounter
--- OUTSIDE RECORDS SUMMARY | 2025-02-04 07:31 | External Medical Summary ---
Author Name Unknown Address Unknown Organization [id number]:[facility] [place] [address] [place] [address] Laboratory Report Ordering Provider Test Date Status GERRI PULLIAM 12/01/2024 10:11:24 Final Observation Date Value Abnormality Reference (Units ) Status Glucose [Mass/volume] in Serum or Plasma --3 hours post dose glucose 12/01/2024 10:11:24 92 70-139 (mg/dL) Final Performing Location [facility] [place] [address] [place] [address]
--- OUTSIDE RECORDS SUMMARY | 2025-02-04 07:31 | External Medical Summary ---
Author Name Unknown Address Unknown Organization [id number]:[facility] [place] - [address] [place] [address] Laboratory Report Ordering Provider Test Date Status GERRI PULLIAM 11/21/2024 14:34:04 Final Observation Date Value Abnormality Reference (Units ) Status Creatinine 11/21/2024 14:34:04 0.8 0.5-1.0 (mg/dL) Final Glomerular filtration rate/1.73 sq M.predicted [Volume Rate/Area] in Serum, Plasma or Blood by Creatinine-based formula (CKD-EPI) 11/21/2024 14:34:04 >90 >=60 (mL/min) Final eGFR is calculated based on the CKD-EPI 2020 equation. Performing Location LABORATORY [facility] [place] - [address] [place] [address]
--- OUTSIDE RECORDS SUMMARY | 2025-02-04 07:31 | External Medical Summary ---
Author Name Unknown Address Unknown Organization [id number]:[facility] [place] - [address] [facility] [place] [address] Laboratory Report Ordering Provider Test Date Status GERRI PULLIAM 11/21/2024 14:34:04 Final Observation Date Value Abnormality Reference (Units ) Status Ferritin 11/21/2024 14:34:04 34 13-150 (ng /mL) Final Performing Location LABORATORY [facility] - [address] [facility] [address]
--- OUTSIDE RECORDS SUMMARY | 2025-02-04 07:31 | External Medical Summary | Summary of Care ---
Author Name Unknown Organization [facility] Address [address] [place] [address] Phone [phone] Care Team Providers Care Plumbing And Heating Mechanic Name Role Phone Shelbie May MD Primary Care Provider Reason for Visit * Reason Comments Outpatient Testing Encounter Details Date Type Department Care Team (Late st Contact Info) Description 12/01/2024 7:00 AM [facility] Laboratory Laboratory, [facility] [address] [place] [address] [facility] [address] [place] [address] Abnormal glucose tolerance in mother complicating Allergies No known active allergiesdocumented as of this encounter (statuses as of 12/01/2024) Medications 19 29-1 MG Oral Tablet Chewable [...] as of this encounter (statuses as of 12/01/2024) Active Problems Problem Noted Date Diagnosed Date [...] as of this encounter (statuses as of 12/01/2024) Resolved Problems Problem Noted Date Diagnosed Date [...] as of this encounter (statuses as of 12/01/2024) Immunizations Name Administration Dates Next Due COVID-19 mRNA, LNP-s, No Pre serve, 2-Dose Series (YUPPTV) 09/05/2021,12/30/2020,12/09/2020 COVID-19, MRNA-LNP, 24-25, P R, 30MCG/0.3ML, [...] money to get more. Never true 09/15/2024 [place] Depression Scale Answer Date Recorded [place] Depression Scale Total 8 07/04/2024 The thought [...] 3:30 PM EDT Office Visit [facility]necology/[facility]st[facility]s [facility] [address] [place] [address] Chaya Joseph PA-C [address] [place] [address] 05/09/2025 8:00 AM EDT Office Visit Family Practice [facility] [address] [place] [address] Shelbie May MD [address] [place] [address] Pending Results Name Type Priority Associated Diagnoses Date /Time GESTATIONAL GLUCOSE TOLERANCE, 3 HOUR Lab Routine Abnormal glucose tolerance in mother complicating 12/01/2024 7:07 AM EST 100-G GESTATIONAL GLUCOSE, 3 HOUR Lab Routine Abnormal glucose tolerance in mother complicating 12/01/2024 10:11 AM EST Health Maintenance Due Date Last Done Comments [...] Procedure Name Priority Date/Time Associated Diagnosis Comments 100-G GESTATIONAL GLUCOSE, 2 HOUR Routine 12/01/2024 9:12 AM EST Abnormal glucose tolerance in mother complicating 100-G GESTATIONAL GLUCOSE, 1 HOUR Routine 12/01/2024 8:13 AM EST Abnormal glucose tolerance in mother complicating 100-G GESTATIONAL GLUCOSE, FASTING Routine 12/01/2024 7:07 AM EST Abnormal glucose tolerance in mother complicating documented in this encounter Results * 100-G GESTATIONAL GLUCOSE, 2 HOUR (12/01/2024 9:12 AM EST) 100-g Gestational Glucose, 2 Hour 122 70 - 154 mg/dL 12/01/2024 10:14 AM EST [facility] [place] [facility] Blood Venous blood specimen / Unknown Venipuncture / Unknown 12/01/2024 9:12 AM EST 12/01/2024 9:12 AM EST us Angelia Trevino PA-C LAB BLOOD ORDERAB LES Final Result [facility] [place] [facility] [address] [facility] [place] [address] * 100-G GESTATIONAL GLUCOSE, 1 HOUR (12/01/2024 8:13 AM EST) 100-g Gestational Glucose, 1 Hour 166 70 - 179 mg/dL 12/01/2024 10:06 AM EST [facility] [place] [facility] Blood Venous blood specimen / Unknown Venipuncture / Unknown 12/01/2024 8:13 AM EST 12/01/2024 8:13 AM EST us Angelia Trevino PA-C LAB BLOOD ORDERAB LES Final Result [facility] [place] [facility] [address] [place] [address] * 100-G GESTATIONAL GLUCOSE, FASTING (12/01/2024 7:07 AM EST) 100-g Gestational Glucose, Fasting 86 70 - 94 mg/dL 12/01/2024 8:56 AM EST [facility] [facility] Blood Venous blood specimen / Unknown Venipuncture / Unknown 12/01/2024 7:07 AM EST 12/01/2024 7:07 AM EST Narrative [facility] [facility] - 12/01/2024 8:56 AM EST Based on ACOG guideline, gestational diabetes mellitus is diagnosed when any of the following is met: Fasting is greater than or equal to 95 mg/dL 1 hour is greater than or equal to 180 mg/dL 2 hour is greater than or equal to 155 mg/dL 3 hour is greater than or equal to 140 mg/dL us Angelia Trevino PA-C LAB BLOOD ORDERAB LES Final Result [facility] [place] [address] documented in this encounter Visit Diagnoses Diagnosis Supervision of normal first , antepartum- Primary Hypothyroidism affecting , antepartum Abnormal glucose tolerance in mother complicating Abnormal maternal glucose tolerance, complicating , childbirth, or the puerperium, unspecified as to episode of care documented in this encounter Additional Health Concerns Active Problems Noted Date Diagnosed Date OB Reminders 07/04/2024 documented as of this encounter Care Teams Plumbing And Heating Mechanic Relationship Specialty Start Date End Date Shelbie May MD [address] [place] [address] PCP - General Internal Medicine 08/31/22 documented as of this encounter
--- OUTSIDE RECORDS SUMMARY | 2025-02-04 07:31 | External Medical Summary ---
Author Name Unknown Address Unknown Organization [id number][facility] [address] [place] [address] Laboratory Report Ordering Provider Test Date Status GERRI PULLIAM 11/21/2024 14:34:04 Final Observation Date Value Abnormality Reference (Units ) Status Glucose [Moles/volume] in Serum or Plasma --1 hour post 50 g glucose PO 11/21/2024 14:34:04 176 Above high normal 70-129 (mg/dL) Final Performing Location [facility] 0 - [address] [place] [address]
--- OUTSIDE RECORDS SUMMARY | 2025-02-04 07:31 | External Medical Summary | Summary of Care ---
Author Name Unknown Organization [facility] Address [address] [place] [address] Phone [phone] Care Team Providers Care Station Engineer Main Line Name Role Phone Shelbie May MD Primary Care Provider Reason for Visit * Reason Comments Outpatient Testing Encounter Details Date Type Department Care Team (Late st Contact Info) Description 11/21/2024 1:30 PM [facility] Laboratory Laboratory, [facility] [address] [place] [address] [facility] [address] [place] [address] Supervision of other normal , antepartum; Hypothyroidism affecting , antepartum Allergies No known active allergiesdocumented as of this encounter (statuses as of 11/21/2024) Medications 19 29-1 MG Oral Tablet Chewable [...] as of this encounter (statuses as of 11/21/2024) Active Problems Problem Noted Date Diagnosed Date Abnormal glucose tolerance in mother complicatin g [...] as of this encounter (statuses as of 11/21/2024) Resolved Problems Problem Noted Date Diagnosed Date [...] as of this encounter (statuses as of 11/21/2024) Immunizations Name Administration Dates Next Due COVID-19 mRNA, LNP-s, No Pre serve, 2-Dose Series (Evaneos) 09/05/2021,12/30/2020,12/09/2020 COVID-19, MRNA-LNP, 24-25, P R, 30MCG/0.3ML, [...] money to get more. Never true 09/15/2024 [place] Depression Scale Answer Date Recorded [place] Depression Scale Total 8 07/04/2024 The thought [...] as of this encounter Miscellaneous Notes * Result Encounter Note - Angelia Trevino PA-C - 11/21/2024 5:33 PM EST Please inform patient her 1 hour GTT was elevated. I have placed an order for a 3 hour for her to complete at her earliest convenience. Thanks! Angelia Trevino PA-C documented in this encounter Plan of Treatment Upcoming Encounters Date Type Department Care Team (Late st Contact Info) Description 11/30/2024 12:40 PM EST Office Visit Dermatology [facility] [address] [place] [address] Ariana Tejeda PA-C [address] [facility] [place] [address] 12/07/2024 3:30 PM EDT Office Visit Gynecology/Obstetrics [facility] [address] [place] [address] Chaya Joseph PA-C [address] [place] [address] 05/09/2025 8:00 AM EDT Office Visit Family Practice [facility] [address] [place] [address] Shelbie May MD [address] [place] [address] Pending Results Name Type Priority Associated Diagnoses Date /Time CBC WITH WBC DIFFERENTIAL AND ANEMIA REFLEX WORKUP Lab Routine Supervision of other normal , antepartum 11/21/2024 2:34 PM EST SYPHILIS ANTIBODY SCREEN WITH REFLEX TO RPR Lab Routine Supervision of other normal , antepartum 11/21/2024 2:34 PM EST TSH Lab Routine Hypothyroidism affecting , antepartum 11/21/2024 2:34 PM EST ANEMIA CBC Lab Routine Supervision of other normal , antepartum 11/21/2024 2:34 PM EST DIFFERENTIAL, AUTOMATED Lab Routine Supervision of other normal , antepartum 11/21/2024 2:34 PM EST ANEMIA REFLEX CHEMISTRY HOLD Lab Routine Supervision of other normal , antepartum 11/21/2024 2:34 PM EST SYPHILIS ANTIBODY SCREEN Lab Routine Supervision of other normal , antepartum 11/21/2024 2:34 PM EST Health Maintenance Due Date Last Done Comments Hepatitis B Vaccine (1 of 3 - 19+ 3-dose series) 2014 Depression Screening 08/06/2022 08/06/2021 TSH 08/30/2025 08/30/2024, 10/0 04/2024, 02/09/2024, Additional history exists Pap Smear 10/13/2025 10/13/2022, 12/16/2017 DTap/Tdap Vaccines (4 - Td or Tdap) [...] Procedure Name Priority Date/Time Associated Diagnosis Comments 50-G GESTATIONAL GLUCOSE, 1 HOUR Routine 11/21/2024 2:34 PM EST Supervision of other normal , antepartum documented in this encounter Results * (ABNORMAL) 50-G GESTATIONAL GLUCOSE, 1 HOUR (11/21/2024 2:34 PM EST) 50-g Gestational Glucose, 1 Hour 176(H) 70 - 129 mg/dL 11/21/2024 3:21 PM EST [facility] [place] [facility] Blood Venous blood specimen / Unknown Venipuncture / Unknown 11/21/2024 2:34 PM EST 11/21/2024 2:34 PM EST Angelia Trevino PA-C LAB BLOOD ORDERAB LES Final Result [facility] [address] [place] [address] documented in this encounter Visit Diagnoses Diagnosis Supervision of normal first , antepartum- Primary Hypothyroidism affecting , antepartum Supervision of other normal , antepartum Hypothyroidism affecting , antepartum documented in this encounter Additional Health Concerns Active Problems Noted Date Diagnosed Date OB Reminders 07/04/2024 documented as of this encounter Care Teams Station Engineer Main Line Relationship Specialty Start Date End Date Shelbie May MD [address] [place] [address] PCP - General Internal Medicine 08/31/22 documented as of this encounter
--- OUTSIDE RECORDS SUMMARY | 2025-02-04 07:31 | External Medical Summary ---
Author Name Unknown Address Unknown Organization [id number]:[facility] [place] [address] [place] [address] Laboratory Report Ordering Provider Test Date Status GERRI PULLIAM 11/21/2024 14:34:04 Final Observation Date Value Abnormality Reference (Units ) Status TSH 11/21/2024 14:34:04 1.79 0.27-4.20 (uIU/mL) Final Performing Location [facility] - [address] [place] [address]
--- OUTSIDE RECORDS SUMMARY | 2025-02-04 07:31 | External Medical Summary | Summary of Care ---
Author Name Unknown Organization [facility] Address [address] [place] [address] Phone [phone] Care Team Providers Care Ios Programmer Name Role Phone Shelbie May MD Primary Care Provider Encounter Details Date Type Department Care Team (Late st Contact Info) Description 11/22/2024 Telephone Gynecology/Obst[facility]s [facility] [address] [place] [address] Angelia Trevino PA-C [address] [facility] [place] [address] Allergies No known active allergiesdocumented as of [...] mRNA, LNP-s, No Pre serve, 2-Dose Series (Verenium) 09/05/2021,12/30/2020,12/09/2020 COVID-19, MRNA-LNP, 24-25, P R, 30MCG/0.3ML, IM, 12YRS AND ABOVE ([facility]) 07/18/2024 Seasonal Influenza Virus Vac cine, Unspecified [...] money to get more. Never true 09/15/2024 [place] Depression Scale Answer Date Recorded [place] Depression Scale Total 8 07/04/2024 The thought [...] encounter Miscellaneous Notes * Telephone Encounter - Berna Guillermo RN - 11/22/2024 8:50 AM EST Patient called and made aware. Patient is going to talk to talk to her and will need assistance scheduling lab appt. Please message pt on my chart to schedule 3 hr testing. Patient agreeable to all instructions for testing. * Telephone Encounter - Teodora Parekh LPN - 11/22/2024 8:36 AM EST ----- Message from Angelia Trevino sent at 11/21/2024 5:33 PM EST ----- Please inform patient her 1 hour GTT was elevated. I have placed an order for a 3 hour for her to complete at her earliest convenience. Thanks! Angelia Trevino PA-C documented in this encounter Plan of Treatment Upcoming Encounters Date Type Department Care Team (Late st Contact Info) Description 11/30/2024 12:40 PM EST Office Visit Dermatology [facility] [address] [place] [address] Ariana Tejeda PA-C [address] [facility] [place] [address] 12/07/2024 3:30 PM EDT Office Visit Gynecology/Obstetrics [facility] [address] [place] [address] Chaya Joseph PA-C [address] [place] [address] 05/09/2025 8:00 AM EDT Office Visit Family Practice [facility] [address] [place] [address] Shelbie May MD [address] [place] [address] Health Maintenance Due Date Last Done Comments Hepatitis B Vaccine (1 of 3 - 19+ 3-dose series) 2014 Depression Screening 08/06/2022 08/06/2021 Pap Smear 10/13/2025 10/13/2022, 12/16/2017 TSH 11/21/2025 11/21/2024, 12/2023, 07/04/2024, Additional history exists DTap/Tdap Vaccines [...] documented as of this encounter Care Teams Ios Programmer Relationship Specialty Start Date End Date Shelbie May MD [address] [place] [address] PCP - General Internal Medicine 08/31/22 documented as of this encounter
--- OUTSIDE RECORDS SUMMARY | 2025-02-04 07:31 | External Medical Summary | Summary of Care ---
Author Name Unknown Organization [facility] Address [address] [place] [address] Phone [phone] Care Team Providers Care Custody Officer Name Role Phone Shelbie May MD Primary Care Provider Reason for Visit * Reason Comments Return Visit Encounter Details Date Type Department Care Team (Late st Contact Info) Description 10/31/2024 3:45 PM EST Office Visit Gynecology/Obstetric s [facility] [address] [place] [address] Shasha Talley PA-C [address] [place] [address] Supervision of other normal , antepartum*; Hypothyroidism affecting , antepartum; Antepartum anemia complicating ; Iron deficiency anemia, unspecified iron deficiency anemia type; Need for prophylactic vaccination with combined sfbhzabsth-fsliubz-ti rtussis (DTP) vaccine; Acquired hypothyroidism; Abnormal glucose tolerance in mother complicating Allergies No known active allergiesdocumented as of this encounter (statuses as of 11/22/2024) Medications 19 29-1 MG Oral Tablet Chewable Take by mouth . Active Clindamycin Phosphate 1 % External Lotion Apply to face daily for acne 60 mL 3 05/29/20 24 Active Vitron-C 65-125 MG Oral Tablet (Iron-Vitamin C 65-125 mg per tab) Take 1 Tablet by mouth in the morning. Active Levothyroxine Sodium 75 MCG Oral Tablet (Levoxyl)Indicatio ns:Acquired hypothyroidism Take 1 Tablet by mouth daily first thing in the morning. (at least 30 min prior to breakfast or other meds) 90 Tablet 1 10/31/19 25 Active Levothyroxine Sodium 75 MCG Oral Tablet (Levoxyl)Indicatio ns:Acquired hypothyroidism TAKE 1 TABLET DAILY FIRST THING IN THE MORNING AT LEAST 30 MINUTES PRIOR TO BREAKFAST OR OTHER MEDS 90 Tablet 1 10/31/19 25 025 Discontin ued(Refil l) documented as of this encounter (statuses as [...] money to get more. Never true 09/15/2024 [place] Depression Scale Answer Date Recorded [place] Depression Scale Total 8 07/04/2024 The thought [...] Sign Reading Time Taken Comments Blood Pressure 94/64 10/31/2024 3:36 PM EST Pulse - - Temperature - - Respiratory Rate - - Oxygen Saturation - - Inhaled Oxygen Concentration - - Weight 68.9 kg (152 lb) 10/31/2024 3:36 PM EST Height 167.6 cm (5' 6") 10/31/2024 3:36 PM EST Body Mass Index 24.53 10/31/2024 3:36 PM EST documented in this encounter Progress Notes * Shasha Talley PA-C - 10/31/2024 3:45 PM EST Nadia Reyna is a 29 year old female here for her routine OB appointment at 27w3d Her Estimated Date of Delivery: 01/27/25 REVIEW OF SYSTEMS She affirms movement. Denies vaginal bleeding, LOF, contractions, headaches, vision changes, chest pain, RUQ pain. PHYSICAL EXAM Filed Vitals: 10/31/24 1536 BP: 94/64 Weight: 68.9 kg (152 lb) Height: 1.676 m (5' 6") +FHT 140s Fundal height 27 cm ASSESSMENT/PLAN Supervision of other normal , antepartum (Primary) - CBC WITH WBC DIFFERENTIAL AND ANEMIA REFLEX WORKUP; Future; Expected date: 10/31/2024 - 50-G GESTATIONAL GLUCOSE, 1 HOUR; Future; Expected date: 10/31/2024 - SYPHILIS ANTIBODY SCREEN WITH REFLEX TO RPR; Future; Expected date: 10/31/2024 Hypothyroidism affecting , antepartum - TSH; Future; Expected date: 10/31/2024 Antepartum anemia complicating Iron deficiency anemia, unspecified iron deficiency anemia type Need for prophylactic vaccination with combined cbmtxzsuna-ckerwmp-mjvxvpxtu (DTP) vaccine - TDAP (AGE 7 AND OLDER), ADACEL Acquired hypothyroidism - Levothyroxine Sodium 75 MCG Oral Tablet (Levoxyl); Take 1 Tablet by mouth daily first thing in the morning. (at least 30 min prior to breakfast or other meds) Supervision of - recommended tdap vaccine - patient received today - planning to complete CBC, GTT, RPR, and TSH with her next visit. - she declines prescription for a breast pump - is planning NFP for contraception - rhogam not needed d/t A+ blood type - labor precautions and kick counts reviewed RTO in 2 weeks Shasha Talley PA-C 10/31/2024 documented in this encounter Nursing Notes * Nelly Hernandez LPN - 10/31/2024 3:57 PM EST Patient here for tdap injection. Patient doing well no complaints. Injection given IM as ordered. Patient tolerated well. Patient to follow up as directed. Patient instructed to call if any complications. Patient verbalized understanding of instructions given and her follow up appt for CHARLES Injection site: Right Deltoid Medication Source: Dispensed stock medication * Nelly Hernandez LPN - 10/31/2024 3:41 PM EST 27w3d Tdap Denies concerns documented in this encounter Miscellaneous Notes * Addendum Note - Shasha Talley PA-C - 11/21/2024 5:33 PM EST Addended by: SHASHA TALLEY on: 11/21/2024 05:33 PM Modules accepted: Orders documented in this encounter Plan of Treatment Upcoming Encounters Date Type Department Care Team (Late st Contact Info) Description 11/30/2024 12:40 PM EST Office Visit Dermatology [employer] [address] [place] [address] Ariana Tejeda PA-C 200 [facility] [place] [address] 12/07/2024 3:30 PM EDT Office Visit Gynecology/Obstetrics [address] [place] [address] Chaya Joseph PA-C [address] [place] [address] 05/09/2025 8:00 AM EDT Office Visit Family Practice [facility] [address] [place] [address] Shelbie May MD [address] [place] [address] Pending Results Name Type Priority Associated Diagnoses Date /Time SYPHILIS ANTIBODY SCREEN WITH REFLEX TO RPR Lab Routine Supervision of other normal , antepartum 11/21/2024 2:34 PM EST TSH Lab Routine Hypothyroidism affecting , antepartum 11/21/2024 2:34 PM EST Scheduled Orders Name Type Priority Associated Diagnoses Orde r Schedule SYPHILIS ANTIBODY SCREEN WITH REFLEX TO RPR Lab Routine Supervision of other normal , antepartum Expected: 10/31/2024, Expires: 10/31/2025 TSH Lab Routine Hypothyroidism affecting , antepartum Expected: 10/31/2024, Expires: 10/31/2025 GESTATIONAL GLUCOSE TOLERANCE, 3 HOUR Lab Routine Abnormal glucose tolerance in mother complicating Expected: 11/21/2024, Expires: 11/21/2025 Health Maintenance Due Date Last Done Comments Hepatitis B Vaccine (1 of 3 - 19+ 3-dose series) 2014 Depression Screening 08/06/2022 08/06/2021 TSH 08/30/2025 08/30/2024, 04/2024, 02/09/2024, Additional history exists Pap Smear [...] Not on filedocumented as of this encounter Results * (ABNORMAL) 50-G GESTATIONAL GLUCOSE, 1 HOUR (11/21/2024 2:34 PM EST) 50-g Gestational Glucose, 1 Hour 176(H) 70 - 129 mg/dL 11/21/2024 3:21 PM EST [facility]10 Blood Venous blood specimen / Unknown Venipuncture / Unknown 11/21/2024 2:34 PM EST 11/21/2024 2:34 PM EST Shasha Talley PA-C LAB BLOOD ORDERAB LES Final Result [facility] [place] [address] [place] [address] documented in this encounter Visit Diagnoses Diagnosis Supervision of normal first , antepartum- Primary Hypothyroidism affecting , antepartum Supervision of other normal , antepartum- Primary Hypothyroidism affecting , antepartum Antepartum anemia complicating Anemia, antepartum Iron deficiency anemia, unspecified iron deficiency anemia type Need for prophylactic vaccination with combined uljrhbresh-kjnggak-ylwmjtsfj (DTP) vaccine Acquired hypothyroidism Unspecified hypothyroidism Abnormal glucose tolerance in mother complicating Abnormal maternal glucose tolerance, complicating , childbirth, or the puerperium, unspecified as to episode of care documented in this encounter Additional Health Concerns Active Problems Noted Date Diagnosed Date OB Reminders 07/04/2024 documented as of this encounter Care Teams Custody Officer Relationship Specialty Start Date End Date Shelbie May MD [address] [place] [address] PCP - General Internal Medicine 08/31/22 documented as of this encounter
--- OUTSIDE RECORDS SUMMARY | 2025-02-04 07:31 | External Medical Summary ---
Author Name Unknown Address Unknown Organization [id number]:[facility]ORY [facility] - [address] [facility] [address] Laboratory Report Ordering Provider Test Date Status EGRRI PULLIAM 11/21/2024 14:34:04 Final Observation Date Value Abnormality Reference (Units ) Status Iron 11/21/2024 14:34:04 91 33-151 (ug/dL) Final Iron-binding capacity 11/21/2024 14:34:04 476 Above high normal 250-425 (ug/dL) Final Transferrin Sat % 11/21/2024 14:34:04 19 15-55 (%) Final Performing Location [facility] [address] [facility] [facility] [address]
--- OUTSIDE RECORDS SUMMARY | 2025-02-04 07:31 | External Medical Summary | Summary of Care ---
Author Name Unknown Organization [facility] Address [address] [place] [address] Phone [phone] Care Team Providers Care Physician Industrial Name Role Phone Shelbie May MD Primary Care Provider Reason for Visit * Reason Comments Skin Check Follow Up Skin check- fam hist ory of mm Encounter Details Date Type Department Care Team (Late st Contact Info) Description 11/30/2024 12:40 PM EST Office Visit Dermatology [facility] Meneses [place] [address] [facility] [place] [address] Ariana Tejeda PA-C [address] [facility] [place] [address] Skin exam, screening for cancer*; Family history [...] mRNA, LNP-s, No Pre serve, 2-Dose Series ([employer]) 09/05/2021,12/30/2020,12/09/2020 COVID-19, MRNA-LNP, 24-25, P R, 30MCG/0.3ML, [...] money to get more. Never true 09/15/2024 [place] Depression Scale Answer Date Recorded [place] Depression Scale Total 8 07/04/2024 The thought [...] No 09/15/2024 Does the household have a [facility] source of income? (Household - for ages [...] as of this encounter Progress Notes * Ariana Tejeda PA-C - 11/30/2024 1:05 [...] hx MM. - continue sun protection - ABCKimani discussed Discussed sun protection with patient including proper use of sunscreens (30spf, reapply every 2 hours) and protective clothing. Follow-up: 1 years ([facility] hx MM) There were no barriers tolearning [...] Health Care as noted on problem list. [employer] is a way you can talk to your provider online through e-mail. Would you like to sign up? I can activate it for you? ALREADY ACTIVE Chief Complaint Patient presents with Skin Check Follow Up Skin check- fam history of mm documented in this encounter Plan of Treatment Upcoming Encounters Date Type Department Care Team (Late st Contact Info) Description 12/01/2024 7:00 AM EST Laboratory Laboratory, [facility] [address] [place] [id number] Lukasz Deshpandes [address] [place] [address] 12/07/2024 3:30 PM EDT Office Visit Gynecology/Obstetrics [facility] [address] [place] [address] Chaya Joseph PA-C [address] [place] [address] 05/09/2025 8:00 AM EDT Office Visit Family Practice [facility] [address] [place] [address] Shelbie May MD [address] [place] [address] Health Maintenance Due Date Last Done Comments [...] 11/30/2024 us Ariana Tejeda PA-C DIGITAL PHOTOGRAPHY Fin al Result documented in this encounter Visit Diagnoses [...] documented as of this encounter Care Teams Physician Industrial Relationship Specialty Start Date End Date Shelbie May MD [address] [place] [address] PCP - General Internal Medicine 08/31/22 documented as of this encounter
--- OUTSIDE RECORDS SUMMARY | 2025-02-04 07:31 | External Medical Summary ---
Author Name Unknown Address Unknown Organization [id number][place] [facility] [place] [address] [place] [address] Laboratory Report Ordering Provider Test Date Status GERRI PULLIAM 11/21/2024 14:34:04 Final Observation Date Value Abnormality Reference (Units ) Status Vitamin B12 11/21/2024 14:34:04 [phone] (pg/mL) Final Performing Location [facility] [place] [address] [place] [address]
--- OUTSIDE RECORDS SUMMARY | 2025-02-04 07:31 | External Medical Summary ---
Author Name Unknown Address Unknown Organization [id number]:LABORATORY [facility] [place] [facility] - [address] [place] [address] Laboratory Report Ordering Provider Test Date Status GERRI PULLIAM 12/01/2024 09:12:40 Final Observation Date Value Abnormality Reference (Units ) Status Glucose, 2-hr post glucose challenge 12/01/2024 09:12:40 122 70-154 (mg/dL) Final Performing Location LABORATORY [facility] [place] [address] 0 - [address] [place] [address]
--- OUTSIDE RECORDS SUMMARY | 2025-02-04 07:31 | External Medical Summary ---
Author Name Unknown Address Unknown Organization [id number]:LABORATORY [facility] [place] [facility] - [address] [place] [address] Laboratory Report Ordering Provider Test Date Status GERRI PULLIAM 12/01/2024 07:07:37 Final Based on ACOG guideline, ges tational diabetes mellitus is diagnosed when any of the following is met:
Fasting is greater than or equal to 95 mg/dL
1 hour is greater than or equal to 180 mg/dL
2 hour is greater than or equal to 155 mg/dL
3 hour is greater than or equal to 140 mg/dL Observation Date Value Abnormality Reference (Units ) Status Glucose, fasting 12/01/2024 07:07:37 86 70- 94 (mg/dL) Final Performing Location LABORATORY [facility] [place] [address] 0 - [address] [place] [address]
--- OUTSIDE RECORDS SUMMARY | 2025-02-04 07:31 | External Medical Summary | Summary of Care ---
Author Name Unknown Organization [facility] Address [address] [place] [address] Phone [phone] Care Team Providers Care Diamond Picker Name Role Phone Shelbie May MD Primary Care Provider Reason for Visit * Reason Comments Return Visit Encounter Details Date Type Department Care Team (Late st Contact Info) Description 11/21/2024 2:30 PM EST Office Visit Gynecology/Obstetric s Spencer Deshpande [address] [facility] [place] [address] Fay Raza CNM [address] [place] [facility] [place] [address] Supervision of other normal , antepartum*; Hypothyroidism affecting , antepartum Allergies No known [...] mRNA, LNP-s, No Pre serve, 2-Dose Series ([employer]) 09/05/2021,12/30/2020,12/09/2020 COVID-19, MRNA-LNP, 24-25, P R, 30MCG/0.3ML, [...] money to get more. Never true 09/15/2024 [place] Depression Scale Answer Date Recorded [place] Depression Scale Total 8 07/04/2024 The thought [...] Sign Reading Time Taken Comments Blood Pressure 98/62 11/21/2024 2:02 PM EST Pulse - - Temperature - - Respiratory Rate - - Oxygen Saturation - - Inhaled Oxygen Concentration - - Weight 71.7 kg (158 lb) 11/21/2024 2:02 PM EST Height 167.6 cm (5' 6") 11/21/2024 2:02 PM EST Body Mass Index 25.5 11/21/2024 2:02 PM EST documented in this encounter Progress Notes * Fay Raza CNM - 11/21/2024 2:30 PM EST Nadia Reyna is a 29 year old female here for her routine OB appointment at 30w3d Her Estimated Date of Delivery: 01/27/25 REVIEW OF SYSTEMS: She affirms movement. Denies vaginal bleeding, LOF, contractions, N/V, headaches Nadia is feeling well today. Had labs done today. PHYSICAL EXAM: Filed Vitals: 11/21/24 1402 BP: 98/62 Weight: 71.7 kg (158 lb) Height: 1.676 m (5' 6") +FHT 140s Fundal height 30 ASSESSMENT/PLAN: No diagnosis found. Supervision of - labor precautions and kick counts reviewed - RTO in 2 weeks Fay Raza CNM documented in this encounter Nursing Notes * Nelly Hernandez LPN - 11/21/2024 2:44 PM EST 30w3d Denies concerns. documented in this encounter Plan of Treatment Upcoming Encounters Date Type Department Care Team (Late st Contact Info) Description 11/30/2024 12:40 PM EST Office Visit Dermatology [facility] [address] [facility] [place] [address] Ariana Tejeda PA-C [address] [facility] [place] [address] 12/07/2024 3:30 PM EDT Office Visit Gynecology/Obstetrics [facility] [address] [place] [address] Chaya Joseph PA-C [address] [place] [address] 05/09/2025 8:00 AM EDT Office Visit Family Practice [facility] [address] [place] [address] Shelbie May MD [address] [place] [address] Health Maintenance Due Date Last Done Comments [...] , antepartum- Primary Hypothyroidism affecting , antepartum documented in this encounter Additional Health Concerns Active Problems Noted Date Diagnosed Date OB Reminders 07/04/2024 documented as of this encounter Care Teams Diamond Picker Relationship Specialty Start Date End Date Shelbie May MD [address] [place] [address] PCP - General Internal Medicine 08/31/22 documented as of this encounter
--- OUTSIDE RECORDS SUMMARY | 2025-02-04 07:31 | External Medical Summary ---
Author Name Unknown Address Unknown Organization [id number]:LAB[facility]ATORY [facility] [place] [address] [place] [address] Laboratory Report Ordering Provider Test Date Status GERRI PULLIAM 11/21/2024 14:34:04 Final Observation Date Value Abnormality Reference (Units ) Status Folic Acid 11/21/2024 14:34:04 >20.0 >4.5 (ng/ mL) Final Performing Location [facility]ORY [facility] [place] - [address] [place] [address]
--- OUTSIDE RECORDS SUMMARY | 2025-02-04 07:31 | External Medical Summary ---
Author Name Unknown Address Unknown Organization K01:[facility] [place] [facility] [address] [facility] [address] Laboratory Report Ordering Provider Test Date Status GERRI PULLIAM 11/21/2024 14:34:04 Final Observation Date Value Abnormality Reference (Units ) Status SYNC LEUKOCYTES IN BLOOD BY AUTOMATED COUNT 11/21/2024 14:34:04 10.21 4.00-10.80 (K/uL) Final Segs 11/21/2024 14:34:04 78.4 Above high normal 40.0-75.0 (%) Final Lymphs % 11/21/2024 14:34:04 15.1 Below low normal 18.0-42.0 (%) Final Monos 11/21/2024 14:34:04 4.4 1.0-11.0 (%) Final Eosinophils 11/21/2024 14:34:04 1.1 0.0-6.0 (%) Final Basos 11/21/2024 14:34:04 0.4 0.0-2.0 (%) Final Immature Granulocyte, Percent 11/21/2024 14:34:04 0.6 0.0-2.0 (%) Final Absolute Segs 11/21/2024 14:34:04 8.01 Above high normal 1.80-7.70 (K/uL) Final Lymphs, absolute 11/21/2024 14:34:04 1.54 1.00-4.80 (K/ul) Final Monos, Abs 11/21/2024 14:34:04 0.45 0.00-1.10 (K/uL) Final Eos, Abs 11/21/2024 14:34:04 0.11 0.00-0.70 (K/uL) Final Basos, Abs 11/21/2024 14:34:04 0.04 0.00-0.20 (K/uL) Final Immature Granulocytes, Number 11/21/2024 14:34:04 0.06 0.00-0.20 (K/uL) Final Performing Location LAB[facility]ATORY [facility] [place] - [address] [facility] [address]
--- OUTSIDE RECORDS SUMMARY | 2025-02-04 07:31 | External Medical Summary | Summary of Care ---
Author Name Unknown Organization [facility] Address [address] [place] [address] Phone [phone] Care Team Providers Care Taxation Economist Name Role Phone Shelbie May MD Primary Care Provider Encounter Details Date Type Department Care Team (Late st Contact Info) Description 12/04/2024 Telephone Gynecology/Obstetrics [facility] [address] [facility] [place] [address] Richelle Barnett PA-C [address] [facility] [place] [address] Allergies No known active allergiesdocumented as of this encounter (statuses as of 12/04/2024) Medications 19 29-1 MG Oral Tablet Chewable [...] as of this encounter (statuses as of 12/04/2024) Active Problems Problem Noted Date Diagnosed Date [...] as of this encounter (statuses as of 12/04/2024) Resolved Problems Problem Noted Date Diagnosed Date [...] as of this encounter (statuses as of 12/04/2024) Immunizations Name Administration Dates Next Due COVID-19 mRNA, LNP-s, No Pre serve, 2-Dose Series ([employer]) 09/05/2021,12/30/2020,12/09/2020 COVID-19, MRNA-LNP, 24-25, P R, 30MCG/0.3ML, [...] money to get more. Never true 09/15/2024 [place] Depression Scale Answer Date Recorded [place] Depression Scale Total 8 07/04/2024 The thought [...] Telephone Encounter - Berna Guillermo RN - 12/04/2024 2:54 PM EDT ----- Message from Richelle Barnett sent at 12/04/2024 2:42 PM EDT ----- Patient passed 3 hr glucose documented in this encounter Plan of Treatment Upcoming Encounters Date Type Department Care Team (Late st Contact Info) Description 12/07/2024 3:30 PM EDT Office Visit Gynecology/Obstetrics [facility] [address] [place] [address] Chaya Joseph PA-C [address] [place] [address] 05/09/2025 8:00 AM EDT Office Visit Family Practice [facility] [address] [place] [address] Shelbie May MD [address] [place] [address] Health Maintenance Due Date Last Done Comments [...] and 19+ Years) Aged Out No longer eliestivenb le based on patient's age to complete [...] documented as of this encounter Care Teams Taxation Economist Relationship Specialty Start Date End Date Shelbie May MD [address] [place] [address] PCP - General Internal Medicine 08/31/22 documented as of this encounter
--- OUTSIDE RECORDS SUMMARY | 2025-02-04 07:32 | External Medical Summary | Summary of Care ---
Author Name Unknown Organization [facility] Address [address] [place] [address] Phone [phone] Care Team Providers Care Metal Punch Press Operator Name Role Phone Shelbie May MD Primary Care Provider Reason for Visit * Reason Comments Return Visit Encounter Details Date Type Department Care Team (Late st Contact Info) Description 09/29/2024 4:30 PM EST Office Visit Gynecology/Obstetric s Spencer Deshpande [address] [place] [address] Chaya Joseph PA-C [address] [place] [address] Supervision of other normal , antepartum*; Hypothyroidism affecting , antepartum Allergies No known active allergiesdocumented as of this encounter (statuses as of 09/29/2024) Medications 19 29-1 MG Oral Tablet Chewable Take by mouth . Active Levothyroxine Sodium 75 MCG Oral Tablet (Levoxyl)Indicatio ns:Acquired hypothyroidism Take 1 Tablet by mouth daily first thing in the morning. (at least 30 min prior to breakfast or other meds). 90 Tablet 1 4 Active Clindamycin Phosphate 1 % External Lotion Apply to face daily for acne 60 mL 3 4 Active Vitron-C 65-125 MG Oral Tablet (Iron-Vitamin C 65-125 mg per tab) Take 1 Tablet by mouth in the morning. Active documented as of this encounter (statuses as of 09/29/2024) Active Problems Problem Noted Date Diagnosed Date Supervision of other normal , antepartu m 10/13/2022 Anxiety 09/12/2021 Acquired hypothyroidism 06/19/2021 Family history of malignant melanoma 06/19/2021 Hypothyroidism affecting , antepartum 1 11/14/2019 Assessment & Plan (10/28/2020 10:27 AM EST): Reminded of need for TSH. Estimated Date of Delivery Comme nts Yes 01/27/2025 Based on last me nstrual period of 04/22/2024 (Exact Date) documented as of this encounter (statuses as of 09/29/2024) Resolved Problems Problem Noted Date Diagnosed Date [...] as of this encounter (statuses as of 09/29/2024) Immunizations Name Administration Dates Next Due COVID-19 mRNA, LNP-s, No Pre serve, 2-Dose Series ([employer]) 09/05/2021,12/30/2020,12/09/2020 COVID-19, MRNA-LNP, 24-25, P R, 30MCG/0.3ML, IM, 12YRS AND ABOVE (ViClone-Comirnaty) 07/18/2024 Seasonal Influenza Virus Vac cine, Unspecified Formulation 08/09/2021 Seasonal Influenza, PF, 6 M & above, IM , (FluLaval or Fluzone) 07/06/2023,07/31/2022 Seasonal Influenza, Quadriva lent, No Preserve, IM 06/24/2020 Seasonal Influenza, Trivalen t, (IIV3), PF, (Fluzone) 07/18/2024 TDAP (age 10 and older)(Boostrix) 02/25/2023,09/2020 documented as of this encounter Social History [...] money to get more. Never true 09/15/2024 [place] Depression Scale Answer Date Recorded [place] Depression Scale Total 8 07/04/2024 The thought [...] ages 0-17 years) Not on file 09/15/2024 Estimated Date of Delivery Comme nts [...] Sign Reading Time Taken Comments Blood Pressure 112/62 09/29/2024 4:27 PM EST Pulse - - Temperature - - Respiratory Rate - - Oxygen Saturation - - Inhaled Oxygen Concentration - - Weight 66.7 kg (147 lb) 09/29/2024 4:27 PM EST Height - - Body Mass Index 23.73 06/26/2024 1:49 PM EDT documented in this encounter Progress Notes * Chaya Joseph PA-C - 09/29/2024 4:37 PM EST 22w6d Has chest congestion and cold. Asking about OTC medications. Discussed plain Musinex consider acceptable for use in if needed. Some left hip pain, has been lifting toddler which doesn't help. Reviewed comfort measures. TSH normal as of 08/30/2024: 2.49 Denies LOF, VB, contractions. + quickening. Anatomy ultrasound complete. RTC in 4 weeks Chaya Joseph PA-C * Jenny Ron CMA - 09/29/2024 4:27 PM EST 22w6d Having hip pain, left hip. documented in this encounter Plan of Treatment Upcoming Encounters Date Type Department Care Team (Late st Contact Info) Description 10/31/2024 3:45 PM EST Office Visit Gynecology/Obstetrics [facility] [address] [place] [address] [address] Angelia Trevino PA-C [address] [place] [address] 11/30/2024 12:40 PM EST Office Visit Dermatology [facility] [address] [facility] [place] [address] Ariana Tejeda PA-C [address] [facility] [place] [address] 05/09/2025 8:00 AM EDT Office Visit Family Practice [facility] [address] [place] [address] Shelbie May MD [address] [place] [address] Health Maintenance Due Date Last Done Comments Hepatitis B Vaccine (1 of 3 - 19+ 3-dose series) 2014 Depression Screening 08/06/2022 08/06/2021 TSH 08/30/2025 08/30/2024, 04/2024, 02/09/2024, Additional history exists Pap Smear 10/13/2025 10/13/2022, 12/16/2017 DTap/Tdap Vaccines (3 - Td or Tdap) 02/25/2033 02/25/2023, 11/25/2020 COVID-19 Vaccine Discontinued 07/18/2024, 06/2021, [...] documented as of this encounter Care Teams Metal Punch Press Operator Relationship Specialty Start Date End Date Shelbie May MD [address] [place] [address] PCP - General Internal Medicine 08/31/22 documented as of this encounter
--- OUTSIDE RECORDS SUMMARY | 2025-02-04 07:32 | External Medical Summary ---
Author Name Unknown Address Unknown Organization K01:LABORATORY [facility] [place] - [address] [place] [address] Laboratory Report Ordering Provider Test Date Status VALDEMAR MARS 08/30/2024 14:38:31 Final Observation Date Value Abnormality Reference (Units ) Status TSH 08/30/2024 14:38:31 2.49 0.27-4.20 (uIU/mL) Final Performing Location LABORATORY C - [address] [place] [address]
--- OUTSIDE RECORDS SUMMARY | 2025-02-04 07:32 | External Medical Summary | Summary of Care ---
Author Name Unknown Organization [facility] Address [address] [place] [address] Phone [phone] Care Team Providers Care Scratch Brusher Name Role Phone Shelbie May MD Primary Care Provider Reason for Visit * Reason Comments Return Visit Encounter Details Date Type Department Care Team (Latest Contact Info) Description 10/31/2024 3:45 PM EST Office Visit Gynecology/Obstetri Spencer Deshpande [address] [place] [address] Angelia Trevino PA-C [address] [place] [address] Supervision of other normal , antepartum*; Hypothyroidism affecting , antepartum; Antepartum anemia complicating ; Iron deficiency anemia, unspecified iron deficiency anemia type; Need for prophylactic vaccination with combined ydkfcntaty-aydwfxo-ikhr ussis (DTP) vaccine; Acquired hypothyroidism Allergies No known active allergiesdocumented as of this encounter (statuses as of 11/01/2024) Medications 19 29-1 MG Oral Tablet Chewable [...] as of this encounter (statuses as of 11/01/2024) Active Problems Problem Noted Date Diagnosed Date [...] as of this encounter (statuses as of 11/01/2024) Resolved Problems Problem Noted Date Diagnosed Date [...] as of this encounter (statuses as of 11/01/2024) Immunizations Name Administration Dates Next Due COVID-19 mRNA, LNP-s, No Pre serve, 2-Dose Series ([email or web address]) 09/05/2021,12/30/2020,12/09/2020 COVID-19, MRNA-LNP, 24-25, P R, 30MCG/0.3ML, [...] money to get more. Never true 09/15/2024 [place] Depression Scale Answer Date Recorded [place] Depression Scale Total 8 07/04/2024 The thought [...] No 09/15/2024 Does the household have a [facility] source of income? (Household - for ages [...] documented in this encounter Progress Notes * Angelia Trevino PA-C - 10/31/2024 3:45 PM EST Nadia [...] type Need for prophylactic vaccination with combined yursqktmxn-kbftgba-jywrozzoz (DTP) vaccine - TDAP (AGE 7 AND [...] kick counts reviewed RTO in 2 weeks Angelia Trevino PA-C 10/31/2024 documented in this encounter Nursing Notes * Nelly Hernandez LPN - 10/31/2024 3:57 PM EST Patient here for tdap injection. Patient doing well no complaints. Injection given IM as ordered. Patient tolerated well. Patient to follow up as directed. Patient instructed to call if any complications. Patient verbalized understanding of instructions given and her follow up appt for CHRALES Injection site: Right Deltoid Medication Source: Dispensed stock medication * Nelly Hernandez LPN - 10/31/2024 3:41 PM EST 27w3d Tdap Denies concerns documented in this encounter Plan of Treatment Upcoming Encounters Date Type Department Care Team (Late st Contact Info) Description 11/21/2024 1:30 PM EST Laboratory Laboratory, [facility] [address] [place] [address] [facility] [address] [place] [address] 11/21/2024 2:30 PM EST Office Visit Gynecology/Obstetrics [facility] [address] [place] [address] Fay Raza CNM [address] [place] [address] 11/30/2024 12:40 PM EST Office Visit Dermatology [facility] [address] [facility] [place] [address] Ariana Tejeda PA-C [address] [facility] [place] [address] 05/09/2025 8:00 AM EDT Office Visit Family Practice [facility] [address] [place] [address] Shelbie May MD [address] [place] [address] Scheduled Orders Name Type Priority Associated Diagnoses Orde r Schedule CBC WITH WBC DIFFERENTIAL AND ANEMIA REFLEX WORKUP Lab Routine Supervision of other normal , antepartum Expected: 10/31/2024, Expires: 10/31/2025 50-G GESTATIONAL GLUCOSE, 1 HOUR Lab Routine Supervision of other normal , antepartum Expected: 10/31/2024, Expires: 10/31/2025 SYPHILIS ANTIBODY SCREEN WITH REFLEX TO RPR Lab Routine Supervision of other normal , antepartum Expected: 10/31/2024, Expires: 10/31/2025 TSH Lab Routine Hypothyroidism affecting , antepartum Expected: 10/31/2024, Expires: 10/31/2025 Health Maintenance Due Date Last Done Comments [...] type Need for prophylactic vaccination with combined digfsgzubh-izpewvn-dfpscguug (DTP) vaccine Acquired hypothyroidism Unspecified hypothyroidism documented in this encounter Additional Health Concerns Active Problems Noted Date Diagnosed Date OB Reminders 07/04/2024 documented as of this encounter Care Teams Scratch Brusher Relationship Specialty Start Date End Date Shelbie May MD [address] [facility] [place] [address] PCP - General Internal Medicine 08/31/22 documented as of this encounter
--- OUTSIDE RECORDS SUMMARY | 2025-02-04 07:32 | External Medical Summary | Summary of Care ---
Author Name Unknown Organization [facility] Address [address] [place] [address] Phone [phone] Care Team Providers Care Command Center Analyst Name Role Phone Shelbie May MD Primary Care Provider Reason for Visit * Reason Comments Outpatient Testing Encounter Details Date Type Department Care Team (Late st Contact Info) Description 08/30/2024 2:40 PM EST Laboratory Laboratory, [facility] [address] [place] [address] [facility] [address] [place] [address] Hypothyroidism affecting , antepartum Allergies No known active allergiesdocumented as of this encounter (statuses as of 08/30/2024) Medications 19 29-1 MG Oral Tablet Chewable [...] as of this encounter (statuses as of 08/30/2024) Active Problems Problem Noted Date Diagnosed Date [...] as of this encounter (statuses as of 08/30/2024) Resolved Problems Problem Noted Date Diagnosed Date [...] as of this encounter (statuses as of 08/30/2024) Immunizations Name Administration Dates Next Due COVID-19 mRNA, LNP-s, No Pre serve, 2-Dose Series (Just Sing It) 09/05/2021,12/30/2020,12/09/2020 COVID-19, MRNA-LNP, 24-25, P R, 30MCG/0.3ML, IM, 12YRS AND ABOVE (Just Sing It-Comirnaty) 07/18/2024 Seasonal Influenza Virus Vac cine, Unspecified [...] the money to buy more. Never true 08/29/20 24 Within the past 12 months, t he food you bought just didn't last and you didn't have money to get more. Never true 08/29/2024 [place] Depression Scale Answer Date Recorded [place] Depression Scale Total 8 07/04/2024 The thought of harming myself has occurred to me . Never 07/04/2024 Childcare Answer Date Recorded Do you feel overwhelmed with taking care of a child, family member or friend? No 08/29/2024 Does your family need help f inding childcare? (Household - for ages 0-17 years) Not on file 08/29/2024 Clothing Answer Date Recorded Have you been unable to get clothing when it was really needed? No 08/29/2024 Is your family able to get c lothes or diapers when needed? (Household - for ages 0-17 years) Not on file 08/29/2024 Personal Safety Answer Date Recorded Do you feel unsafe or have concerns for your saf ety? No 08/29/2024 Do you have concerns for you r family's safety? (Household - for ages 0-17 years) Not on file 08/29/2024 Utilities Answer Date Recorded Do you have trouble paying y our heating, water, or electric bill? No 08/29/2024 Is your family able to pay t he heat, water, or electric bill? (Household - for ages 0-17 years) Not on file 08/29/2024 Does your family have access to good internet? (Household - for ages 0-17 years) Not on file 08/29/2024 Employment Status Answer Date Recorded Are you unemployed or without regular income? No 08/29/2024 Does the household have a re gular source of income? (Household - for ages 0-17 years) Not on file 08/29/2024 Social Connections Answer Date Recorded How often do you feel lonely or isolated from th ose around you? Never 08/29/2024 Financial Resource Strain Answer Date R ecorded Do you have any trouble payi ng for your medications, or do you think you might in the future? No 08/29/2024 Does your family have troubl e paying for medicine? (Household - for ages 0-17 years) Not on file 08/29/2024 Transportation Needs Answer Date Record ed Do you have trouble getting a ride to medical visits or work? (Adult - for ages 18 years and over) Not on file 08/29/2024 Does your family have a hard time getting a ride to doctors visits? (Household - for ages 0-17 years) Not on file 08/29/2024 Has lack of transportation k ept you from medical appointments, meetings, work, or from getting things needed for daily living? Check all that apply. No 08/29/2024 Do you (or your family) have trouble finding or paying for a ride (transportation)? (Household - for ages 0-17 years) Not on file 08/29/2024 Housing Stability Answer Date Recorded Do you currently live in a s helter or have no steady place to sleep at night? No 08/29/2024 Do you think you are at risk of becoming homeless? (Adult - for ages 18 years and over) Not on file 08/29/2024 Does your family worry about paying for your home or becoming homeless? (Household - for ages 0-17 years) Not on file 1 10/30/2023 Are you homeless or worried that you might be in the future? No 08/29/2024 Are you (or your family) tommy eless or worried that you might be in the future? (Household - for ages 0-17 years) Not on file Food Insecurity Answer Date Recorded Do you need food for this week? No 08/29/2024 Are you able to get enough f ood for your family? (Household - for ages 0-17 years) Not on file 08/29/2024 Does your family need food t his week? (Household - for ages 0-17 years) Not on file 08/29/2024 Do you always have enough fo od for your family? (Household - for ages 0-17 years) Not on file 08/29/2024 Estimated Date of Delivery Comme nts Yes [...] Care Team (Late st Contact Info) Description 09/13/2024 2:15 PM EST Imaging Rad[facility] [place] [address] 09/29/2024 4:30 PM EST Office Visit Gynecology/Obstetrics [facility] [address] [facility] [place] [address] Chaya Joseph PA-C [address] [place] [address] 11/30/2024 12:40 PM EST Office Visit Dermatology [facility] [place] [address] [place] [address] Ariana Tejeda PA-C [address] [place] [address] 05/09/2025 8:00 AM EDT Office Visit Family Practice [facility] [address] [place] [address] Shelbie May MD [address] [place] [address] Pending Results Name Type Priority Associated Diagnoses Date /Time TSH WITH FREE T4 IF INDICATED Lab Routine Hypothyroidism affecting , antepartum 08/30/2024 2:38 PM EST Health Maintenance Due Date Last Done Comments Hepatitis B Vaccine (1 of 3 - 19+ 3-dose series) 2014 Depression Screening 08/06/2022 08/06/2021 TSH 07/04/2025 07/04/2024, 01/25, 08/24/2023, Additional history exists Pap Smear 10/13/2025 10/13/2022, [...] 5 Years) and At-Risk Patients (6 to 64 Years) Aged Out No longer eligible based on [...] Hypothyroidism affecting , antepartum Hypothyroidism affecting , antepartum documented in this encounter Additional Health Concerns Active Problems Noted Date Diagnosed Date OB Reminders 07/04/2024 documented as of this encounter Care Teams Command Center Analyst Relationship Specialty Start Date End Date Shelbie May MD [address] [place] [address] PCP - General Internal Medicine 08/31/22 documented as of this encounter
--- OUTSIDE RECORDS SUMMARY | 2025-02-04 07:32 | External Medical Summary | Summary of Care ---
Author Name Unknown Organization [facility] Address [address] [place] [address] Phone [phone] Care Team Providers Care Coat Cutter Name Role Phone Shelbie May MD Primary Care Provider Reason for Visit * Reason Comments eRx-Medication Refill Encounter Details Date Type Department Care Team (Late st Contact Info) Description 10/30/2024 Refill Family Practice [facility] [address] [place] [address] Shelbie May MD [address] [place] [address] Acquired hypothyroidism Allergies No known active allergiesdocumented [...] Active Levothyroxine Sodium 75 MCG Oral Tablet (Levoxyl)Indicati ons:Acquired hypothyroidism Take 1 Tablet by mouth daily first thing in the morning. (at least 30 min prior to breakfast or other meds). 90 Tablet 1 04/19/20 24 2024 Discontinued Levothyroxine Sodium 75 MCG Oral Tablet (Levoxyl)Indicati ons:Acquired hypothyroidism TAKE 1 TABLET DAILY FIRST THING IN THE MORNING AT LEAST 30 MINUTES PRIOR TO BREAKFAST OR OTHER MEDS 90 Tablet 1 10/31/19 25 2024 Discontinued(R efill) documented as of this encounter (statuses as [...] mRNA, LNP-s, No Pre serve, 2-Dose Series (Wipebook) 09/05/2021,12/30/2020,12/09/2020 COVID-19, MRNA-LNP, 24-25, P R, 30MCG/0.3ML, [...] money to get more. Never true 09/15/2024 [place] Depression Scale Answer Date Recorded [place] Depression Scale Total 8 07/04/2024 The thought [...] encounter Miscellaneous Notes * Telephone Encounter - Dona Gasria CRNP - 10/31/2024 2:13 PM EST Signed Prescriptions: Disp Refills Levothyroxine Sodium 75 MCG Oral Tablet (L*90 Tab*1 Sig: TAKE 1 TABLET DAILY FIRST THING IN THE MORNING AT LEAST 30 MINUTES PRIOR TO BREAKFAST OR OTHER MEDS Authorizing Provider: SHELBIE MAY Ordering User: DONA GARSIA * Telephone Encounter - Jorge Schaffer [facility] - 10/31/2024 9:27 AM ESTPending Prescriptions: Disp Refills Levothyroxine Sodium 75 MCG Oral Tablet (L*90 Tab*1 Sig: TAKE 1 TABLET DAILY FIRST THING IN THE MORNING AT LEAST 30 MINUTES PRIOR TO BREAKFAST OR OTHER MEDS * Telephone Encounter - Jorge Schaffer [facility] - 10/31/2024 9:27 AM EST Unable to authorize medication refills for pended medication(s) at this time. Part of the protocol criteria used for refill authorization was not satisfied. Patient is . Please approve if appropriate. Thank You, Jorge Guardado [facility] Clinical Pharmacist [facility]) 10/31/2024, 9:27 AM * Telephone Encounter - Jorge Schaffer [facility] - 10/31/2024 9:26 AM EST Pending Prescriptions: Disp Refills Levothyroxine Sodium 75 MCG Oral Tablet (*90 Tab*1 Sig: TAKE 1 TABLET DAILY FIRST THING IN THE MORNING AT LEAST 30 MINUTES PRIOR TO BREAKFAST OR OTHER MEDS Last Visit: 05/04/2024 (in office), Visit date not found (telemedicine) Next Visit: 05/09/2025 If no future appointments scheduled, and last appointment is greater than a year ago, please schedule patient for a follow-up appointment Last date the medication was ordered: 04/19/24 Pharmacy: [facility] Is this request for a controlled substance? No Urine Drug Screen:No results found for this or any previous visit. Patient Phone Numbers Labs: Lab Results Component Value Date/Time CREAT 0.8 07/04/2024 02:04 PM CREAT 0.97 01/26/2019 12:00 AM POTASSIUM 4.1 01/26/2019 12:00 AM TSH 2.49 08/30/2024 02:38 PM LDLCALC 84 01/05/2018 12:00 AM HGBA1C 5.1 01/05/2018 12:00 AM documented in this encounter Plan of Treatment Upcoming Encounters Date Type Department Care Team (Late st Contact Info) Description 11/21/2024 1:30 PM EST Laboratory Laboratory, [facility] [address] [place] [id number] [facility] [address] [place] [address] 11/21/2024 2:30 PM EST Office Visit Gynecology/Obstetrics [facility] [address] [place] [address] Fay Raza CNM [address] [place] [address] 11/30/2024 12:40 PM EST Office Visit Dermatology [facility] [address] [facility] [place] [address] Ariana Tejeda PA-C [address] [facility] [place] [address] 05/09/2025 8:00 AM EDT Office Visit Family Practice [facility] [address] [place] [address] Shelbie May MD [address] [place] [address] Health Maintenance Due Date Last Done Comments Hepatitis B Vaccine (1 of 3 - 19+ 3-dose series) 2014 Depression Screening 08/06/2022 08/06/2021 TSH 08/30/2025 08/30/2024, 100 04/2024, 02/09/2024, Additional history exists Pap Smear [...] , antepartum- Primary Hypothyroidism affecting , antepartum Acquired hypothyroidism Unspecified hypothyroidism documented in this encounter Additional Health Concerns Active Problems Noted Date Diagnosed Date OB Reminders 07/04/2024 documented as of this encounter Care Teams Coat Cutter Relationship Specialty Start Date End Date Shelbie May MD [address] [address] PCP - General Internal Medicine 08/31/22 documented as of this encounter
--- OUTSIDE RECORDS SUMMARY | 2025-02-04 07:32 | External Medical Summary | Summary of Care ---
Author Name Unknown Organization [facility] Address [address] [place] [address] Phone [phone] Care Team Providers Care Sap Bpc Architect Name Role Phone Shelbie May MD Primary Care Provider Reason for Visit * Reason Comments Return Visit Encounter Details Date Type Department Care Team (Late st Contact Info) Description 08/30/2024 2:15 PM EST Office Visit Gynecology/Obstetric s [facility] [address] [place] [address] Bailey Bashir CRNP [address] [place] [address] Supervision of other normal , antepartum*; Hypothyroidism [...] mRNA, LNP-s, No Pre serve, 2-Dose Series (Avuxi) 09/05/2021,12/30/2020,12/09/2020 COVID-19, MRNA-LNP, 24-25, P R, 30MCG/0.3ML, IM, 12YRS AND ABOVE (Avuxi-Comirnaty) 07/18/2024 Seasonal Influenza Virus Vac cine, Unspecified [...] money to get more. Never true 08/29/2024 [place] Depression Scale Answer Date Recorded [place] Depression Scale Total 8 07/04/2024 The thought [...] 08/29/2024 Does the household have a re lar [...] Sign Reading Time Taken Comments Blood Pressure 116/66 08/30/2024 2:16 PM EST Pulse - - Temperature - - Respiratory Rate - - Oxygen Saturation - - Inhaled Oxygen Concentration - - Weight 63.8 kg (140 lb 9.6 oz) 08/30/2024 2:16 P M EST Height - - Body Mass Index 22.69 06/26/2024 1:49 PM EDT documented in this encounter Progress Notes * Bailey Bashir CRNP - 08/30/2024 2:36 PM EST 18w4d Complaints: none. Feeling well, nausea improved. Has not felt FM. No contractions, bleeding, or LOF. Anatomy u/s in 2 weeks. TSH today. SULY Hennessy * Jenny Ron CMA - 08/30/2024 2:16 PM EST 18w4d Denies any concerns documented in this encounter Plan of Treatment Upcoming Encounters Date Type Department Care Team (Late st Contact Info) Description 09/13/2024 2:15 PM EST Imaging Radiology [facility] [address] [place] [address] 09/29/2024 4:30 PM EST Office Visit Gynecology/Obstetrics [facility] [address] [place] [address] Chaya Joseph PA-C [address] [place] [address] 11/30/2024 12:40 PM EST Office [facility] [address] [place] [address] Ariana Tejeda PA-C [address] [place] [address] 05/09/2025 8:00 AM EDT Office Visit Family Practice [facility] [address] [place] [address] Shelbie May MD [address] [place] [address] Pending Results Name Type Priority Associated Diagnoses Date /Time TSH WITH FREE T4 IF INDICATED Lab Routine Hypothyroidism affecting , antepartum 08/30/2024 2:38 PM EST Scheduled Orders Name Type Priority Associated Diagnoses Orde r Schedule US PREG SINGLE/1ST GEST, 14 WEEKS OR LATER Medical Imaging Routine Supervision of other normal , antepartum Expected: 09/11/2024 (Approximate), Expires: 09/30/2025 TSH WITH FREE T4 IF INDICATED Lab Routine Hypothyroidism affecting , antepartum Expected: 08/30/2024 (Approximate), Expires: 08/30/2025 Health Maintenance Due Date Last Done Comments Hepatitis B Vaccine (1 of 3 - 19+ 3-dose series) 2014 Depression Screening 08/06/2022 08/06/2021 TSH 07/04/2025 07/04/2024, 0501/2024, 08/24/2023, Additional history exists Pap Smear 10/13/2025 [...] documented as of this encounter Care Teams Sap Bpc Architect Relationship Specialty Start Date End Date Shelbie May MD [address] [facility] [place] [address] PCP - General Internal Medicine 08/31/22 documented as of this encounter
--- OUTSIDE RECORDS SUMMARY | 2025-02-04 07:32 | External Medical Summary ---
Author Name Unknown Address Unknown Organization K01:[facility] [place] [facility] [address] [facility] [address] Laboratory Report Ordering Provider Test Date Status GERRI PULLIAM 11/21/2024 14:34:04 Final Observation Date Value Abnormality Reference (Units ) Status WBC, Total 11/21/2024 14:34:04 10.21 4.00-10.8 0 (K/uL) Final RBC 11/21/2024 14:34:04 3.32 3.85-5.15 (M/uL) Final Hemoglobin 11/21/2024 14:34:04 11.2 Below low normal 12 .0-15.3 (g/dL) Final Anemia reflex testing trigge rs on a HGB < 12.0 for Females and HGB < 13.0 for Males in accordance with the WHO Anemia Guidelines
Anemia reflex testing triggers on a HGB < 12.0 for Females and HGB < 13.0 for Males in accordance with the WHO Anemia Guidelines HCT 11/21/2024 14:34:04 34.0 Below low normal 36. 0-45.2 (%) Final MCV 11/21/2024 14:34:04 102.4 81.5-97.5 (fL) Final MCH 11/21/2024 14:34:04 33.7 27.0-34.0 (pg) Final MCHC 11/21/2024 14:34:04 32.9 32.0-36.0 (g/dL) Final RDW 11/21/2024 14:34:04 12.0 11.5-15.5 (%) Final Platelets 11/21/2024 14:34:04 283 140-400 (K /uL) Final MPV 11/21/2024 14:34:04 12.1 6.6-11.1 ( fL) Final Nucleated erythrocytes/100 leukocytes [Ratio] in Blood by Automated count 11/21/2024 14:34:04 0 <=0 (/100 WBCs) [facility] Performing Location [facility] [place] [address] [facility] [address]
[2025-02-04] MEDS ORDERED: LIDOCAINE 1% LOCAL 20 ML VIAL INFIL PRN (07:44)
[2025-02-04] MEDS ORDERED: OXYTOCIN 30 UNITS/NSS 30 UNITS/500 ML BAG IV PRN (07:44)
[2025-02-04] MEDS: PENICILLIN GK 6 MU in DEXTROSE 5% 250 ML IV STA (08:08)
[2025-02-04] MEDS: LACTATED RINGER'S 1,000 ML IV PRN (08:08)
[2025-02-04 08:11] LABS: Hematocrit (blood only) 35.8 % (37.0-47.0); Hemoglobin 12.1 g/dl (12.0-16.0); Mean Corpuscular Hemoglobin 32.8 pg (25.0-34.0); Mean Corpuscular Hgb Conc 33.8 g/dL (32.0-36.0); Mean Platelet Volume 12.4 fL (9.4-12.4); Platelet Count 212 K/uL (130-400); RDW Coefficient of Variation 12.5 % (11.5-14.5); RDW Standard Deviation 44.5 fL (36.4-46.3); Red Blood Count 3.69 M/uL (4.20-5.40); White Blood Count 12.67 K/ul (4.8-10.8)
[2025-02-04] MEDS: OXYTOCIN 30 UNITS/NSS 30 UNITS/500 ML BAG IV PRN (08:55)
--- NOTE | 2025-02-04 09:18 | Delivery Summary ---
Vaginal Delivery Summary Date of Service February 04, 2025 Vaginal Delivery Summary The patient presents in active labor at 5 cm and the called to delivery for live female JOSÉ MANUEL over intact perineum after pushing one time. Delayed cord clamping and Apgars 8/9 weight pending. No tears. QBL 50 ml. Final sponge and instrument counts are correct. Mom and baby stable.
[2025-02-04] MEDS ORDERED: HYDROCORTISONE ACETATE 25 MG SUPP PR PRN (09:33)
[2025-02-04] MEDS ORDERED: BENZOCAINE 20% SPRY 85 APPLN/85 GM CAN EXT PRN (09:33)
[2025-02-04] MEDS ORDERED: PENICILLIN GK 3 MU in DEXTROSE 5% 100 ML IV PRN (12:00)
[2025-02-04] MEDS: IBUPROFEN 600 MG TAB PO PRN (14:41)
[2025-02-04] MEDS: DIPHTHER/TETAN/PERTUS Vaccine (Tdap, Adol/Adult) 0.5mL IM ONE (14:41)
[2025-02-04] MEDS ORDERED: Nursing to Pharmacy Communication SCH (19:00)
[2025-02-04] MEDS: DOCUSATE SODIUM 100 MG CAP PO SCH (20:13)
[2025-02-04] MEDS: FERROUS SULFATE 325 MG TAB PO SCH (20:13)
[2025-02-04] MEDS: ACETAMINOPHEN 325 MG TAB PO PRN (23:29)
[2025-02-05 06:11] LABS: Hematocrit (blood only) 31.1 % (37.0-47.0); Hemoglobin 10.3 g/dl (12.0-16.0); Mean Corpuscular Hemoglobin 32.8 pg (25.0-34.0); Mean Corpuscular Hgb Conc 33.1 g/dL (32.0-36.0); Mean Platelet Volume 12.2 fL (9.4-12.4); Platelet Count 186 K/uL (130-400); RDW Coefficient of Variation 12.7 % (11.5-14.5); RDW Standard Deviation 45.9 fL (36.4-46.3); Red Blood Count 3.14 M/uL (4.20-5.40); White Blood Count 11.68 K/ul (4.8-10.8)
[2025-02-05] MEDS: LEVOTHYROXINE SODIUM 75 MCG TABLET PO SCH (06:22)
[2025-02-05] MEDS ORDERED: LEVOTHYROXINE SODIUM 100 MCG TABLET PO SCH (06:30)
[2025-02-05] MEDS ORDERED: FERROUS SULFATE 325 MG TAB PO SCH (08:00)
[2025-02-05] MEDS: PRENATAL VITAMIN 1 TAB PO SCH (08:34)
--- NOTE | 2025-02-05 08:41 | Obstetrical Progress Note ---
Date of Service February 05, 2025 Assessment & Plan (1) Normal course: PPD #1 pt doing well no complaints wishes to be discharged home Results & Data Vital Signs (Past 12 Hours) Vital Signs Temp Pulse Resp BP BP Pulse Ox O2 Del Method 02/05/25 03:40 36.7 C 61 16 112/71 97 Room Air 02/04/25 23:25 36.8 C 76 18 112/69 97 Room Air
[2025-02-05 08:59] VITALS: PULSE 57; RESP 18; TEMP 98.4; O2SAT 99
[2025-02-05 10:07] VITALS: BP 112/69
[2025-02-05] MEDS ORDERED: bisacodyL 5 MG TABEC PO SCH (20:00)
[2025-02-06] MEDS ORDERED: bisacodyL 10 MG SUPP PR PRN (09:00)
== END 2025-02-05 11:55 | disposition home or self-care (01) | DRG 807 ==
LOC: OPB 07:21 → 4S1 07:27 → 4E2 14:00